=== PATIENT | female | born 1995 | race Hispanic/Latino ===

== ENCOUNTER 2016-11-21 12:55 | Emergency (ER) | payer SELFPAY ==
[2016-11-21] MEDS ORDERED: DUONEB 0.5 MG-3 MG/3 ML SOLN IH ONE ×2 (14:04→14:07)
[2016-11-21] MEDS ORDERED: DELTASONE PO ONE (14:05)
[2016-11-21] MEDS ORDERED: MOTRIN PO ONE (14:05)
[2016-11-21 14:20] LABS: Basophils % (Auto) 0.6 % (0.0-1.8); Eosinophils % (Auto) 1.7 % (0.0-4.3); Hematocrit 40.7 % (30.3-42.9); Hemoglobin 13.6 gm/dl (10.1-14.3); Mean Corpuscular HGB Conc 33 % (30-34); Mean Corpuscular Hemoglobin 30 pg (28-32); Mean Corpuscular Volume 89 fl (79-97); Platelet Count 301 K/mm3 (140-440); Red Cell Distribution Width 14.6 % (13.2-15.2); White Blood Count 12.4 K/mm3 (4.5-11.0)
--- NOTE | 2016-11-21 16:11 | XRay Report ---
ROUTINE CHEST, TWO VIEWS: PA and lateral views demonstrate the heart and mediastinal contour to be of normal size and shape. The lungs are clear and fully expanded and the soft tissues and bony structures are normal. IMPRESSION: Normal study.
[2016-11-21] MEDS ORDERED: TESSALON PERLES PO ONE (16:30)
[2016-11-21] MEDS ORDERED: MUCINEX ER PO ONE (16:30)
[2016-11-21] MEDS ORDERED: TYLENOL PO ONE (16:30)
--- NOTE | 2016-11-21 16:39 | Emergency Department Report ---
HPI - General Chief Complaint: Chest Pain Time Seen by Provider: 11/21/16 16:14 - HPI HPI: The patient is a 21-year-old female who presents for evaluation of cough and dyspnea. The patient has a history of COPD. The patient reports a moderate in severity now productive cough since last night at 10 PM, and progressive shortness of breath since midnight, constant since onset, exacerbated with exertion, severe since this a.m., greater than 8 hours prior to my evaluation. She states that her symptoms are consistent with previous episodes of asthma exacerbations. The patient denies fever, chest pain, syncope, orthopnea, hemoptysis, unilateral leg swelling, oral contraceptive use, recent immobilization, history of DVT or PE, hx cancer. ED Past Medical Hx - Past Medical History Hx Asthma: Yes - Surgical History Hx Appendectomy: Yes - Social History Smoking Status: Current Every Day Smoker Substance Use Type: None - Medications Home Medications: Home Medications Medication Instructions Recorded Confirmed Last Taken Type ALBUTEROL Inhaler [ProAir HFA 2 puff IH QID PRN #1 inhalation 11/21/16 Unknown Rx Inhaler] Ibuprofen [Motrin] 800 mg PO Q8HR PRN #14 tablet 11/21/16 Unknown Rx Phenylephrine/Dm/Acetaminop/GG 20 ml PO Q4HR PRN #180 liquid 11/21/16 Unknown Rx [Mucinex Bsmg-Xyq-Yksioaztkc Lq] predniSONE [Deltasone] 20 mg PO QDAY #5 tab 11/21/16 Unknown Rx traMADol [Ultram 50 MG tab] 50 mg PO Q6HR PRN #12 tablet 11/21/16 Unknown Rx ED Review of Systems ROS: Stated complaint: COUGH/CP/VOMITING/LIGHT HEADED/CP Other details as noted in HPI Constitutional: denies: fever ENT: denies: throat or neck pain Respiratory: reports cough, shortness of breath Cardiovascular: denies: chest pain Endocrine: denies unexplained weight loss or gain Gastrointestinal: denies: abdominal pain, nausea Genitourinary: denies: dysuria Musculoskeletal: denies: leg swelling Skin: denies: rash Neurological: denies: headache Hematological/Lymphatic: denies: easy bleeding or easy bruising Psych: denies sadness or hopelessness Physical Exam - Physical Exam Vital Signs: Vital Signs 11/21/16 11/21/16 11/21/16 13:58 14:28 14:41 Temperature 99.0 F Pulse Rate 89 Pulse Rate [ 85 88 Bilateral Upper Lobe] Respiratory 22 Rate Respiratory 20 18 Rate [Bilateral Upper Lobe] Blood Pressure 111/68 Blood Pressure [Left] O2 Sat by Pulse 93 Oximetry 11/21/16 11/21/16 15:48 15:50 Temperature 99.0 F Pulse Rate 112 H Pulse Rate [ Bilateral Upper Lobe] Respiratory 16 16 Rate Respiratory Rate [Bilateral Upper Lobe] Blood Pressure Blood Pressure 106/67 [Left] O2 Sat by Pulse 93 93 Oximetry Physical Exam: General: well-nourished, well-developed, no acute distress Head: Normocephalic, atraumatic Eyes: normal sclera ENT: bilateral nasal congestion present, mucous membranes are pale and dry Neck: trachea midline, neck supple, No neck stiffness, no cervical adenopathy Respiratory: Diminished breath sounds and wheezing present throughout lung benson bilaterally, no costal retractions, no respiratory distress Cardio: S1 and S2 present, no murmurs, rubs, gallops, capillary refill is delayed Abdomen: Normoactive bowel sounds, soft abdomen, no rigidity, no guarding or rebound tenderness Musc: No pitting edema Skin: No rash Neuro: no facial drooping, normal speech Psych: Normal affect ED Course Vital Signs 11/21/16 11/21/16 11/21/16 13:58 14:28 14:41 Temperature 99.0 F Pulse Rate 89 Pulse Rate [ 85 88 Bilateral Upper Lobe] Respiratory 22 Rate Respiratory 20 18 Rate [Bilateral Upper Lobe] Blood Pressure 111/68 Blood Pressure [Left] O2 Sat by Pulse 93 Oximetry 11/21/16 11/21/16 15:48 15:50 Temperature 99.0 F Pulse Rate 112 H Pulse Rate [ Bilateral Upper Lobe] Respiratory 16 16 Rate Respiratory Rate [Bilateral Upper Lobe] Blood Pressure Blood Pressure 106/67 [Left] O2 Sat by Pulse 93 93 Oximetry ED Medical Decision Making - Lab Data Result diagrams: 11/21/16 14:13 - Medical Decision Making The patient was seen and examined by myself. The patient is placed on a air sampling and monitoring and continuous pulse ox. On initial evaluation, the patient was found to be in no distress. Evaluation orders were placed. The patient is given a duoneb breathing treatment and prednisone for txt of COPD. the patient is given Tessalon Perles for her cough and Tylenol for pain. Lab results are grossly not concerning, including negative influenza screen and negative Preg test. Chest x-ray negative for focal consolidation, pleural effusions, pulmonary congestion, pneumothorax, or other acute cardio pulmonary disease process. The patient was reevaluated and reported that their symptoms were markedly improved. The patient is stable for discharge with outpatient follow-up. The patient is given follow-up and return instructions. The patient expressed understanding and agreed with the plan. The patient is given a prescription for prednisone. The patient is discharged in stable condition. Critical care attestation.: If time is entered above; I have spent that time in minutes in the direct care of this critically ill patient, excluding procedure time. ED Disposition Clinical Impression: Upper respiratory infection, acute, Asthma without acute exacerbation Disposition: DISCHARGED TO HOME OR SELFCARE Is pt being admited?: No Does the pt Need Aspirin: No Condition: Stable Instructions: Asthma (ED), Reactive Airways Disease (ED), Acute Bronchitis (ED) Referrals: PRIMARY CARE, [Primary Care Provider] - 3-5 Days Time of Disposition: 16:33
[2016-11-21 17:27] VITALS: BP 110/62
== END 2016-11-21 17:27 | disposition home or self-care (01) ==
LOC: ED 12:55
DX: J45.909 Unspecified asthma, uncomplicated (principal); J06.9 Acute upper respiratory infection, unspecified; F17.200 Nicotine dependence, unspecified, uncomplicated
CPT/HCPCS: 36415; 71020; 84702; 85025; 87400; 93005; 93010; 94640; 99284; J7512

== ENCOUNTER 2017-03-25 12:09 | Emergency (ER) | payer SELFPAY ==
[2017-03-25] MEDS ORDERED: DUONEB 0.5 MG-3 MG/3 ML SOLN IH ONE ×2 (12:16→13:55)
--- NOTE | 2017-03-25 12:17 | Emergency Department Report ---
Chief Complaint: Adult Asthma Stated Complaint: LIGHT HEADED/DIZZINESS/COUGH Time Seen by Provider: 03/25/17 12:15 - HPI History of Present Illness: pt c/o asthma exacerbation - ROS Review of Systems: + cough + chest feels tight - Exam Physical Exam: insp and exp wheezes todd MSE screening note: Focused history and physical exam performed. Due to findings the following was ordered: meds ED Disposition for MSE Condition: Stable
[2017-03-25 12:20] VITALS: BP 110/67
[2017-03-25] MEDS ORDERED: NACL BACTERIOSTATIC INFILTRATI ONE (12:34)
--- NOTE | 2017-03-25 15:01 | XRay Report ---
ROUTINE CHEST, TWO VIEWS: HISTORY: Shortness of breath. The trachea, heart, mediastinal contour, lung benson and bony thorax are unremarkable. IMPRESSION: Unremarkable chest x-ray.
--- NOTE | 2017-03-25 18:34 | Emergency Department Report ---
Entered by MADHAVI SOLOMON, acting as scribe for JR LORA NP. ED Asthma HPI - General Chief Complaint: Adult Asthma Stated Complaint: LIGHT HEADED/DIZZINESS/COUGH Time Seen by Provider: 03/25/17 12:15 Source: patient Mode of arrival: Ambulatory Limitations: No Limitations - History of Present Illness Initial Comments: This is a 21 y/o female nontoxic, well nourished in appearance, no acute signs of distress presents with difficulty breathing secondary to asthma exacerbation that started 3 days ago and is worsened by heat. Patient stated has been dx with asthma for a long time but does not f/u with a PCP. Sx include difficilty breathing, light headedness and dizziness but pt denies sore throat, fever, chills, RANGEL, chest pain, abd pain, numbness, tingling, n/v, or neck stiffness. Medication includes inhaler, Flovent 110mg with mild relief. Patient stated heat triggers her symptoms and causes her to have asthma exacerbations. Patient denies any drug allergies. Denies PMH aside from Asthma. MD Complaint: other (asthma exacerbation) -: days(s) (3) Asthma History: childhood onset Severity: mild Context: none known Associated Symptoms: dry cough. denies: productive cough, fever, chest pain, hemoptysis, leg edema, syncope Treatments Prior to Arrival: inhaled steroid - Related Data Current Asthma Therapy: inhaled steroid Previous Rx's Medication Instructions Recorded Last Taken Type ALBUTEROL Inhaler [ProAir HFA 2 puff IH QID PRN #1 inhalation 11/21/16 Unknown Rx Inhaler] Ibuprofen [Motrin] 800 mg PO Q8HR PRN #14 tablet 11/21/16 Unknown Rx Phenylephrine/Dm/Acetaminop/GG 20 ml PO Q4HR PRN #180 liquid 11/21/16 Unknown Rx [Mucinex Rfcb-Wvn-Tlheendgkc Lq] predniSONE [Deltasone] 20 mg PO QDAY #5 tab 11/21/16 Unknown Rx traMADol [Ultram 50 MG tab] 50 mg PO Q6HR PRN #12 tablet 11/21/16 Unknown Rx ALBUTEROL Inhaler [ProAir HFA 2 puff IH QID PRN #1 inhalation 03/25/17 Unknown Rx Inhaler] predniSONE [Deltasone] 20 mg PO BID #10 tab 03/25/17 Unknown Rx Allergies Allergy/AdvReac Type Severity Reaction Status Date / Time No Known Allergies Allergy Unverified 06/23/13 09:07 ED Review of Systems Comment: All other systems reviewed and negative Constitutional: denies: chills, fever Eyes: denies: eye pain, eye discharge, vision change ENT: denies: ear pain, throat pain Respiratory: cough, wheezing. denies: SOB with exertion, SOB at rest Cardiovascular: denies: chest pain, dyspnea on exertion, orthopnea, syncope, paroxysmal nocturnal dyspnea Endocrine: no symptoms reported Gastrointestinal: denies: abdominal pain, nausea, vomiting, diarrhea Genitourinary: denies: urgency, dysuria, discharge Musculoskeletal: denies: back pain, joint swelling, arthralgia Skin: denies: rash, lesions Neurological: other (light headedness, dizziness). denies: headache, weakness, numbness, paresthesias Psychiatric: denies: anxiety, depression Hematological/Lymphatic: denies: easy bleeding, easy bruising ED Past Medical Hx - Past Medical History Previous Medical History?: Yes Hx Asthma: Yes - Surgical History Past Surgical History?: Yes Hx Appendectomy: Yes - Social History Smoking Status: Current Every Day Smoker Substance Use Type: None - Medications Home Medications: Home Medications Medication Instructions Recorded Confirmed Last Taken Type ALBUTEROL Inhaler [ProAir HFA 2 puff IH QID PRN #1 inhalation 11/21/16 Unknown Rx Inhaler] Ibuprofen [Motrin] 800 mg PO Q8HR PRN #14 tablet 11/21/16 Unknown Rx Phenylephrine/Dm/Acetaminop/GG 20 ml PO Q4HR PRN #180 liquid 11/21/16 Unknown Rx [Mucinex Eybp-Nns-Mxniwxjdzm Lq] predniSONE [Deltasone] 20 mg PO QDAY #5 tab 11/21/16 Unknown Rx traMADol [Ultram 50 MG tab] 50 mg PO Q6HR PRN #12 tablet 11/21/16 Unknown Rx ALBUTEROL Inhaler [ProAir HFA 2 puff IH QID PRN #1 inhalation 03/25/17 Unknown Rx Inhaler] predniSONE [Deltasone] 20 mg PO BID #10 tab 03/25/17 Unknown Rx ED Physical Exam - General Limitations: No Limitations General appearance: alert, in no apparent distress - Head Head exam: Present: atraumatic, normocephalic - Eye Eye exam: Present: normal appearance, PERRL, EOMI Pupils: Present: normal accommodation - ENT ENT exam: Present: normal exam, normal orophraynx, mucous membranes moist ( Uvula midline), TM's normal bilaterally, normal external ear exam, other (uvula midline). Absent: mucous membranes dry - Neck Neck exam: Present: normal inspection, full ROM. Absent: tenderness, meningismus, lymphadenopathy, thyromegaly - Respiratory Respiratory exam: Present: normal lung sounds bilaterally, wheezes (inspiratory and expiratory bilaterally upper and lower lobes). Absent: respiratory distress , rales, rhonchi, stridor, chest wall tenderness, accessory muscle use, decreased breath sounds, prolonged expiratory - Cardiovascular Cardiovascular Exam: Present: regular rate, normal rhythm, normal heart sounds. Absent: bradycardia, tachycardia, irregular rhythm, systolic murmur, diastolic murmur, rubs, gallop - GI/Abdominal GI/Abdominal exam: Present: soft, normal bowel sounds. Absent: distended, tenderness, guarding, rebound, rigid, mass, bruit - Extremities Exam Extremities exam: Present: normal inspection, full ROM, normal capillary refill. Absent: tenderness, pedal edema, joint swelling, calf tenderness - Back Exam Back exam: Present: normal inspection, full ROM. Absent: tenderness, CVA tenderness (R), CVA tenderness (L), muscle spasm, paraspinal tenderness, vertebral tenderness, rash noted - Neurological Exam Neurological exam: Present: alert, oriented X3, CN II-XII intact, normal gait, reflexes normal. Absent: altered, abnormal gait, motor sensory deficit - Psychiatric Psychiatric exam: Present: normal affect, normal mood - Skin Skin exam: Present: warm, dry, intact, normal color. Absent: rash ED Course Vital Signs 03/25/17 03/25/17 03/25/17 12:17 12:31 12:51 Temperature 97.7 F Pulse Rate 65 Pulse Rate [ 77 62 Posterior Bilateral Throughout] Respiratory 18 Rate Respiratory 20 20 Rate [Posterior Bilateral Throughout] Blood Pressure 110/67 O2 Sat by Pulse 95 Oximetry 03/25/17 14:09 Temperature Pulse Rate Pulse Rate [ 57 L Posterior Bilateral Throughout] Respiratory Rate Respiratory 20 Rate [Posterior Bilateral Throughout] Blood Pressure O2 Sat by Pulse Oximetry - Reevaluation(s) Reevaluation #1: 03/25/17 14:26 Patient feels much better post-DuoNeb 2. She currently stated she does not feel short of breath. Reevaluation #2: 03/25/17 14:33 Wheezing has decreased significantly. ED Medical Decision Making - Medical Decision Making Ed course: This is a 21-year-old female that presents with asthma exacerbation. 1- patient received DuoNeb 2 and Solu-Medrol 40 mg IM in the ED. Patient stated she feels much better with no shortness of breath. Decreased wheezing. 2- patient received prednisone 40 mg and albuterol at the time of discharge. 3- chest x-ray has been obtained in ED. Patient was notified of x-ray findings with her for that was noted by the patient. 4- at time time of discharge, the patient does not seem toxic or ill in appearance. No acute signs of distress noted. Patient agrees to discharge treatment plan of care. No further questions noted by the patient. ED Disposition Clinical Impression: Asthma exacerbation Disposition: DC- TO HOME OR SELFCARE Is pt being admited?: No Does the pt Need Aspirin: No Condition: Stable Instructions: Asthma (ED), Albuterol (By breathing), Prednisone (By mouth) Additional Instructions: Follow-up with a primary care doctor in 24 hours or if symptoms worsen such as shortness of breath, difficulty breathing, chest pain, headache, stiff neck, fever or chills before back to emergency room as soon as possible. Take albuterol and prednisone as prescribed. Prescriptions: ALBUTEROL Inhaler [ProAir HFA Inhaler] 2 puff IH QID PRN #1 inhalation PRN Reason: Shortness Of Breath predniSONE [Deltasone] 20 mg PO BID #10 tab Referrals: PRIMARY CAREMD [Primary Care Provider] - 3-5 Days KIMI TURNER JR, MD [Staff Physician] - 3-5 Days [facility] [Outside] - 3-5 Days [facility] [Outside] - 3-5 Days Forms: Work/School Release Form(ED) This documentation as recorded by the NEHA rowe RYAN,accurately reflects the service I personally performed and the decisions made by ,JR LORA, LINING [employer].
== END 2017-03-25 15:38 | disposition home or self-care (01) ==
LOC: ED 12:09
DX: J45.901 Unspecified asthma with (acute) exacerbation (principal); F17.200 Nicotine dependence, unspecified, uncomplicated
CPT/HCPCS: 71020; 94640; 96372; 99283; J2930

== ENCOUNTER 2017-09-13 19:46 | Emergency (ER) | payer SELFPAY ==
[2017-09-13 19:54] VITALS: BP 127/73
[2017-09-13 20:49] LABS: Anion Gap 20 mmol/L; BUN/Creatinine Ratio 18; Blood Urea Nitrogen 11 mg/dL (7-17); Calcium 9.7 mg/dL (8.4-10.2); Carbon Dioxide 25 mmol/L (22-30); Chloride 99.7 mmol/L (98-107); Glucose 106 mg/dL (65-100); Potassium 3.5 mmol/L (3.6-5.0); Sodium 141 mmol/L (137-145)
[2017-09-13 20:56] LABS: Hematocrit 41.1 % (30.3-42.9); Hemoglobin 13.8 gm/dl (10.1-14.3); Mean Corpuscular HGB Conc 34 % (30-34); Mean Corpuscular Hemoglobin 30 pg (28-32); Mean Corpuscular Volume 89 fl (79-97); Platelet Count 311 K/mm3 (140-440); Red Blood Count 4.61 M/mm3 (3.65-5.03); Red Cell Distribution Width 14.5 % (13.2-15.2); White Blood Count 12.9 K/mm3 (4.5-11.0)
[2017-09-13 20:59] LABS: Bilirubin,Urine NEG (Negative); Blood,Urine NEG (Negative); Ketones,Urine NEG (Negative); Leukocyte Esterase,Urine NEG (Negative); Nitrite,Urine NEG (Negative); Protein,Urine <15 mg/dL mg/dL (Negative); Urobilinogen,Urine < 2.0 mg/dL (<2.0); WBC,Urine < 1.0 /HPF (0.0-6.0)
[2017-09-13] MEDS ORDERED: DUONEB *Not for PRN Use IH ONE ×2 (21:47→21:48)
--- NOTE | 2017-09-13 22:06 | XRay Report ---
FINAL REPORT EXAM: XR CHEST ROUTINE 2V HISTORY: asthma TECHNIQUE: Two view chest PA and lateral PRIORS: None. FINDINGS: Cardiac and mediastinal contours are unremarkable. No focal pulmonary infiltrate is identified. No pleural fluid collection seen. Pulmonary vasculature is unremarkable. IMPRESSION: Negative two-view chest
--- NOTE | 2017-09-13 22:11 | Emergency Department Report ---
HPI - General Chief Complaint: Adult Asthma Time Seen by Provider: 09/13/17 21:39 - HPI HPI: Patient is a 22-year-old female with a history of asthma who presents to the ED via EMS complaining of asthma exacerbation she was at work earlier today. 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 Patient states that she doesn't have any insurance issues unable to get her medications. Has no inhalers at home. She denies any recent illnesses. ED Past Medical Hx - Past Medical History Hx Asthma: Yes - Surgical History Hx Appendectomy: Yes - Social History Smoking Status: Former Smoker Substance Use Type: Alcohol - Medications Home Medications: Home Medications Medication Instructions Recorded Confirmed Last Taken Type ALBUTEROL Inhaler [ProAir HFA 2 puff IH QID PRN #1 inhalation 11/21/16 Unknown Rx Inhaler] Ibuprofen [Motrin] 800 mg PO Q8HR PRN #14 tablet 11/21/16 Unknown Rx Phenylephrine/Dm/Acetaminop/GG 20 ml PO Q4HR PRN #180 liquid 11/21/16 Unknown Rx [Mucinex Tcpf-Iqq-Hcjtiyuayd Lq] traMADol [Ultram 50 MG tab] 50 mg PO Q6HR PRN #12 tablet 11/21/16 Unknown Rx predniSONE [Deltasone] 20 mg PO BID #10 tab 03/25/17 Unknown Rx ALBUTEROL Inhaler [ProAir HFA 2 puff IH QID PRN #1 inhalation 09/13/17 Unknown Rx Inhaler] guaiFENesin [Robitussin] 200 mg PO Q6HR #20 tablet 09/13/17 Unknown Rx predniSONE [Deltasone] 20 mg PO QDAY #5 tab 09/13/17 Unknown Rx ED Review of Systems ROS: Stated complaint: SUSIE Other details as noted in HPI Constitutional: denies: chills, fever Eyes: denies: eye pain, eye discharge, vision change ENT: denies: ear pain, throat pain Respiratory: denies: cough, shortness of breath, wheezing Cardiovascular: denies: chest pain, palpitations Endocrine: no symptoms reported Gastrointestinal: denies: abdominal pain, nausea, diarrhea Genitourinary: denies: urgency, dysuria, discharge Musculoskeletal: denies: back pain, joint swelling, arthralgia Skin: denies: rash, lesions Neurological: denies: headache, weakness, paresthesias Psychiatric: denies: anxiety, depression Hematological/Lymphatic: denies: easy bleeding, easy bruising Physical Exam - Physical Exam Vital Signs: Vital Signs 09/13/17 19:50 Temperature 98.8 F Pulse Rate 84 Respiratory 18 Rate Blood Pressure 127/73 O2 Sat by Pulse 98 Oximetry Physical Exam: GENERAL: Alert and oriented x3, no apparent distress, Normal Gait, atraumatic. Sitting in bed with no respiratory distress HEAD: Head is normocephalic and a-traumatic. NOSE: Nose symetrical, Nontender,Nares appeared normal. MOUTH:Mouth is well hydrated and without lesions. Tonsils nonerythematous or swollen, Uvula midline, Tongue not elevated. Mucous membranes are moist. Posterior pharynx clear, no exudate or lesions. Patent airways. NECK: Supple. Non edematous, . No lymphadenopathy or thyromegaly. No C-spine tenderness LUNGS: Symetrical with respiration, No wheezing, no rales or crackles, CTAB. No use of accessory muscles HEART: S1, S2 present, regular rate and rhythm without murmur, no rubs, no gallops. Non tender to palpation BACK: Full range of motion, no spinal tenderness, nontender to palpation. SKIN: Warm and dry, No lesions, No ulceration or induration present. ED Course Vital Signs 09/13/17 19:50 Temperature 98.8 F Pulse Rate 84 Respiratory 18 Rate Blood Pressure 127/73 O2 Sat by Pulse 98 Oximetry ED Medical Decision Making - Lab Data Result diagrams: 09/13/17 20:16 09/13/17 20:16 - Radiology Data Radiology results: report reviewed Negative chest x-ray. No cardiopulmonary acute findings. - Medical Decision Making 22-year-old presents with asthma exacerbation ED course: Patient received IV Decadron and albuterol in route ED Patient received DuoNeb breathing treatments while in the ED. Long assessment after breathing treatment normalized, no wheezing. Patient is breathing on her own and satting 98% oxygen and Chest x-ray showed no abnormal findings. CBC shows mild leukocytosis otherwise normal labs. I discussed all the findings with the patient. I sent patient home on prednisone and albuterol inhaler with some good R aches coupons so she can get her medications. I discussed the patient to follow-up with Primary care physician. Critical care attestation.: If time is entered above; I have spent that time in minutes in the direct care of this critically ill patient, excluding procedure time. ED Disposition Clinical Impression: Asthma exacerbation Qualifiers: Asthma severity: mild Asthma persistence: intermittent Qualified Code(s): J45.21 - Mild intermittent asthma with (acute) exacerbation Disposition: TO HOME OR SELFCARE Is pt being admited?: No Does the pt Need Aspirin: No Condition: Stable Instructions: Asthma (ED) Additional Instructions: You were given some prescription medication she upon cart used to get your medications. Take medication as prescribed. Follow-up with their primary care physician. If you have any worsening symptoms please return to ED Prescriptions: ALBUTEROL Inhaler [ProAir HFA Inhaler] 2 puff IH QID PRN #1 inhalation PRN Reason: Shortness Of Breath guaiFENesin [Robitussin] 200 mg PO Q6HR #20 tablet predniSONE [Deltasone] 20 mg PO QDAY #5 tab Referrals: PRIMARY CARE, [Primary Care Provider] - 3-5 Days [facility] [Outside] - 3-5 Days [facility] [Outside] - 3-5 Days [facility] [Outside] - 3-5 Days [facility] [Outside] - 3-5 Days Forms: Work/School Release Form(ED) Time of Disposition: 22:18
== END 2017-09-13 22:45 | disposition home or self-care (01) ==
LOC: ED 19:46
DX: J45.21 Mild intermittent asthma with (acute) exacerbation (principal); Z87.891 Personal history of nicotine dependence
CPT/HCPCS: 36415; 71020; 80048; 81001; 81025; 85027; 94640

== ENCOUNTER 2017-12-23 11:52 | Inpatient (IN) | payer OTHER ==
[2017-12-23] MEDS ORDERED: MAGNESIUM SULFATE 2GM/50ML 2 GM/50 ML BAG IV ONE (12:46)
[2017-12-23] MEDS ORDERED: PROVENTIL IH ONE ×2 (12:46→13:59)
[2017-12-23] MEDS ORDERED: TESSALON PERLES PO ONE (12:47)
--- NOTE | 2017-12-23 12:48 | Emergency Department Report ---
Chief Complaint: Adult Asthma Stated Complaint: CHEST PAIN/SUSIE Time Seen by Provider: 12/23/17 12:35 - HPI History of Present Illness: The patient is a 22-year-old female presents for evaluation of dyspnea and cough for the past 3 weeks. The patient has a history of asthma and daily tobacco use. The patient denies fever, chest pain, syncope, hemoptysis, unilateral leg swelling, oral contraceptive use, recent immobilization, history of DVT or PE, recent cancer. - Exam Vital Signs: Vital Signs 12/23/17 11:59 Temperature 98.5 F Pulse Rate 82 Respiratory 20 Rate Blood Pressure 115/70 O2 Sat by Pulse 93 Oximetry MSE screening note: Focused history and physical exam performed. Due to findings the following was ordered: ED Disposition for MSE Condition: Stable
--- NOTE | 2017-12-23 13:03 | Emergency Department Report ---
HPI - General Chief Complaint: Adult Asthma Time Seen by Provider: 12/23/17 12:35 - HPI HPI: The patient is a 22-year-old female presents for evaluation of dyspnea and cough for the past 3 weeks. The patient has a history of asthma and daily tobacco use. The patient denies fever, chest pain, syncope, hemoptysis, unilateral leg swelling, oral contraceptive use, recent immobilization, history of DVT or PE, recent cancer. ED Past Medical Hx - Past Medical History Previous Medical History?: Yes Hx Asthma: Yes - Surgical History Past Surgical History?: Yes Hx Appendectomy: Yes - Family History Family history: hypertension - Social History Smoking Status: Never Smoker Substance Use Type: None - Medications Home Medications: Home Medications Medication Instructions Recorded Confirmed Last Taken Type No Known Home Medications [No 12/23/17 12/23/17 Unknown History Reported Home Medications] ED Review of Systems ROS: Stated complaint: CHEST PAIN/SUSIE Other details as noted in HPI Comment: All other systems reviewed and negative Constitutional: no symptoms reported ENT: congestion. denies: throat pain Respiratory: cough, shortness of breath, SOB with exertion, wheezing. denies: orthopnea, SOB at rest, stridor Cardiovascular: chest pain. denies: palpitations, dyspnea on exertion, edema, syncope, paroxysmal nocturnal dyspnea Gastrointestinal: denies: abdominal pain, nausea, vomiting Musculoskeletal: denies: back pain, joint swelling, arthralgia, myalgia Skin: denies: rash Neurological: denies: headache, weakness, numbness, paresthesias, confusion, abnormal gait, vertigo Physical Exam - Physical Exam Vital Signs: Vital Signs 12/23/17 11:59 Temperature 98.5 F Pulse Rate 82 Respiratory 20 Rate Blood Pressure 115/70 O2 Sat by Pulse 93 Oximetry General: This is a 22-year-old female in mild distress from asthma. Physical Exam: Head: Normocephalic atraumatic Ears:BIateral TM congested without erythema and loss of bony landmarks. [place] EAC with normal exam. No mastoid bone tenderness. Mouth: Moist, no pharyngeal erythema or exudate . No tonsillar erythema or exudate. UVULA midline and oral airways patent. No peritonsillar abscess Neck: Nontender to palpate, supple, normal range of motion. No adenopathy. No c- spine tenderness. Nose: Bilateral nasal mucosa congested with clear drainage. Maxillary and frontal sinuses non-tender to palpate. Eyes: Bilateral Sclerae and conjunctiva without injection. Bilateral pupils equal and reactive to light. Bilateral lids are normal. Normal accommodation.BEOMI Lungs: Wheezes throughout lung benson. Minimal use use of accessory muscles Normal work of breathing and no chest wall tenderness. Dry cough Extremity: No Clubbing, cyanosis or edema. +2 pulses in all extremities and no neurovascular compromise Abdomen: Soft, nontender to palpate in all quadrants. Normal bowel sounds in all quadrants and no CVA tenderness CV: S1, S2. Regular rate and rhythm negative murmur. Capillary refill is less than 3 seconds Skin: Clean dry and intact, no rashes or lesions Psych: Normal mood and behavior ED Course Vital Signs 12/23/17 11:59 Temperature 98.5 F Pulse Rate 82 Respiratory 20 Rate Blood Pressure 115/70 O2 Sat by Pulse 93 Oximetry - Reevaluation(s) Reevaluation #1: 12/23/17 14:16 Patient received 7.5 mg albuterol, magnesium sulfate IV, Solu-Medrol IV and she says she feels better but still with wheezing throughout lung benson. She is started on albuterol 5 mg nebulizer and Atrovent 0.5 mg. I will reevaluate after nebulizer completion. 12/23/17 15:25 Reevaluation #2: 12/23/17 15:23 Patient received additional dose of albuterol 5 mg and Atrovent 0.5 mg and she states that she is feeling better. Up in her evaluation, patient with wheezing throughout lung benson. Her oxygenation after nebulizer treatments at 90% with heart rate of 106 and still with increased work of breathing. 12/23/17 15:24 Reevaluation #3: 12/23/17 15:31 Awaiting the hospitalist call back ED Medical Decision Making - Lab Data Result diagrams: 12/23/17 15:45 Lab Results 12/23/17 12/23/17 Range/Units 13:23 15:45 WBC 12.3 H (4.5-11.0) K/mm3 RBC 4.87 (3.65-5.03) M/mm3 Hgb 14.3 (10.1-14.3) gm/dl Hct 42.3 (30.3-42.9) % MCV 87 (79-97) fl MCH 29 (28-32) pg MCHC 34 (30-34) % RDW 14.1 (13.2-15.2) % Plt Count 312 (140-440) K/mm3 Lymph % (Auto) 10.6 L (13.4-35.0) % [place] % (Auto) 1.2 (0.0-7.3) % Eos % (Auto) 0.5 (0.0-4.3) % Baso % (Auto) 0.3 (0.0-1.8) % Lymph # 1.3 (1.2-5.4) K/mm3 [place] # 0.1 (0.0-0.8) K/mm3 Eos # 0.1 (0.0-0.4) K/mm3 Baso # 0.0 (0.0-0.1) K/mm3 Seg Neutrophils % 87.4 H (40.0-70.0) % Seg Neutrophils # 10.8 H (1.8-7.7) K/mm3 Urine HCG, Qual Negative (Negative) - EKG Data -: EKG Interpreted by Me (attending physician) EKG shows normal: sinus rhythm Rate: normal - EKG Data Interpretation: no acute changes, normal EKG - Radiology Data Radiology results: report reviewed Chest x-ray reveals no acute cardiopulmonary findings - Medical Decision Making ED course: Patient with status asthmaticus and will be admitted to the hospital for management of asthma. I spoke with Dr. Patino who is the hospitalist that we will take over patient care. Please refer to radiology section for chest x- ray report and laboratory section for lab report. Patient received a total of 12.5 mg of albuterol, 0.5 mg of Atrovent, 125 mg Solu-Medrol IV and 2 g of magnesium IV with minimal relief. Ptaware of admission plans that she is in agreement. Her pulse ox remains at 90% on room air and she was placed on 2 L nasal cannula. Patient awaiting in the room. Critical care attestation.: If time is entered above; I have spent that time in minutes in the direct care of this critically ill patient, excluding procedure time. ED Disposition Clinical Impression: Chest pain in adult, Cough, Shortness of breath, Low oxygen saturation Status asthmaticus Qualifiers: Asthma severity: severe Asthma persistence: persistent Qualified Code(s): J45.52 - Severe persistent asthma with status asthmaticus Disposition: DC-09 OP ADMIT IP TO THIS HOSP Is pt being admited?: Yes Does the pt Need Aspirin: No Condition: Stable Instructions: Chest Pain (ED)
[2017-12-23 13:38] LABS: HCG Qualitative,Urine Negative (Negative)
[2017-12-23] MEDS ORDERED: ATROVENT IH ONE (13:59)
--- NOTE | 2017-12-23 14:32 | XRay Report ---
ROUTINE CHEST, TWO VIEWS: HISTORY: Cough, wheezing. The trachea, heart, mediastinal contour, lung benson and bony thorax are unremarkable. IMPRESSION: Unremarkable chest x-ray. No significant change since 09/13/17.
[2017-12-23 16:00] LABS: Basophils % (Auto) 0.3 % (0.0-1.8); Eosinophils # (Auto) 0.1 K/mm3 (0.0-0.4); Eosinophils % (Auto) 0.5 % (0.0-4.3); Hematocrit 42.3 % (30.3-42.9); Hemoglobin 14.3 gm/dl (10.1-14.3); Lymphocytes # (Auto) 1.3 K/mm3 (1.2-5.4); Lymphocytes % (Auto) 10.6 % (13.4-35.0); Mean Corpuscular HGB Conc 34 % (30-34); Mean Corpuscular Hemoglobin 29 pg (28-32); Mean Corpuscular Volume 87 fl (79-97); Monocytes # (Auto) 0.1 K/mm3 (0.0-0.8); Monocytes % (Auto) 1.2 % (0.0-7.3); Platelet Count 312 K/mm3 (140-440); Red Blood Count 4.87 M/mm3 (3.65-5.03); Red Cell Distribution Width 14.1 % (13.2-15.2)
[2017-12-23 16:17] LABS: Alanine Aminotransferase 15 units/L (7-56); Albumin 4.4 g/dL (3.9-5); BUN/Creatinine Ratio 12; Blood Urea Nitrogen 7 mg/dL (7-17); Calcium 9.1 mg/dL (8.4-10.2); Hemolysis Index 10
[2017-12-23] MEDS: PROVENTIL IH SCH (19:20)
[2017-12-24] MEDS: PROVENTIL IH SCH ×4 (02:11→21:45)
--- NOTE | 2017-12-24 05:54 | Event Note ---
Date: 12/23/17 See dictated H/p in reports
[2017-12-24] MEDS ORDERED: DUONEB *Not for PRN Use IH (05:56)
[2017-12-24] MEDS ORDERED: PROVENTIL IH PRN (06:49)
--- NOTE | 2017-12-24 08:27 | History and Physical Report ---
CHIEF COMPLAINT: Increasing wheezing and shortness of breath for 3 weeks. HISTORY OF PRESENT ILLNESS: A 22-year-old female with history of asthma, comes in for increasing shortness of breath and wheezing. Not responding to outpatient treatment. No recent travel. No fever or chills. No exacerbating or relieving factors. PAST MEDICAL HISTORY: Significant for asthma. PAST SURGICAL HISTORY: Appendectomy. FAMILY HISTORY: Hypertension. SOCIAL HISTORY: Does not smoke. No alcohol. No recreation drugs. REVIEW OF SYSTEMS: Significant for shortness of breath and increasing wheezing. No fever, no chills. Otherwise, 14-point review of systems negative. PHYSICAL EXAMINATION: GENERAL: Young female in respiratory distress. VITAL SIGNS: Temperature is 98.5, pulse is 82, respirations 20, blood pressure 150/70, sats are 93%. HEENT: Unremarkable. Pupils equal and reactive. NECK: Accessory muscles of respiration are prominent. CHEST: Inspiratory rhonchi present. CARDIOVASCULAR: No gallop, no murmur, no rub. Apical impulse in left fifth intercostal space and midclavicular line. ABDOMEN: Soft and benign. No hepatosplenomegaly. No guarding, no rigidity. Hernial orifices are normal. EXTREMITIES: Good pedal pulses. No pedal edema. CENTRAL NERVOUS SYSTEM: Alert and oriented x 4, nonfocal exam. SKIN: Normal. LABORATORY DATA: White count is 12,300, H and H is 14.3 and 42.3, platelet count is 312,000. EKG normal sinus rhythm, no acute ST-T wave changes. Chest x-ray: No acute cardiopulmonary findings. ASSESSMENT AND PLAN: 1. Acute asthma exacerbation. The patient started on IV Levaquin, albuterol q. 6 round the clock and DuoNeb q. 3 p.r.n. and also IV Solu-Medrol at low dose. 2. Deep venous thrombosis prophylaxis, heparin 5000 q. 12. JOB# [id number] VSM/NTS
[2017-12-24] MEDS ORDERED: K-DUR PO ONE (09:00)
[2017-12-24] MEDS: HEPARIN SUB-Q SCH ×2 (09:40→22:49)
[2017-12-24] MEDS ORDERED: LEVAQUIN 750MG/150ML 750 MG/150 ML BAG IV SCH (10:00)
--- NOTE | 2017-12-24 16:28 | Progress Note ---
Assessment and Plan Assessment and plan: Patient is a 22-year-old woman with history of asthma and tobacco dependency presents with shortness of breath and cough. 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 Follow-up on current diagnosis of shortness breath which is improved. Overnight uneventful. Patient denies any chest pain , nausea/vomiting or severe headaches. Imaging, nursing note, chart, labs and old chart reviewed. Discussed with patient. Hospitalist Physical - Physical exam Narrative exam: GEN: WDWN, NAD, AWAKE, ALERT, ORIENTATED 3 HEENT: NCAT, EOMI, PERRL, OP Clear NECK: supple, no adenopathy, no thyromegaly, no JVD CVS/HEART: RRR, NORMAL S1S2, pulses present bilaterally CHEST/LUNGS: Coarse rhonchi BILATERALLY Symmetrical chest expansion, good air entry bilaterally GI/Abdomen: soft, NTND, good bowel sounds, no guarding or rebound /Bladder: no suprapubic tenderness, no CVA or paraspinal tenderness EXT/Skin: no c/c/e, no obvious rash MSK: FROM x 4 Neuro: CN 2-12 grossly intact, no new focal deficits Psych: calm - Constitutional Vitals: Temp Pulse Resp BP Pulse Ox 98.3 F 88 20 104/62 95 12/24/17 12:00 12/24/17 12:12 12/24/17 12:12 12/24/17 12:00 12/24/17 12:00 Results - Labs CBC & Chem 7: 12/23/17 15:45 12/23/17 15:45 Labs: Laboratory Last Values WBC 12.3 K/mm3 (4.5-11.0) H 12/23/17 15:45 RBC 4.87 M/mm3 (3.65-5.03) 12/23/17 15:45 Hgb 14.3 gm/dl (10.1-14.3) 12/23/17 15:45 Hct 42.3 % (30.3-42.9) 12/23/17 15:45 MCV 87 fl (79-97) 12/23/17 15:45 MCH 29 pg (28-32) 12/23/17 15:45 MCHC 34 % (30-34) 12/23/17 15:45 RDW 14.1 % (13.2-15.2) 12/23/17 15:45 Plt Count 312 K/mm3 (140-440) 12/23/17 15:45 Lymph % (Auto) 10.6 % (13.4-35.0) L 12/23/17 15:45 [place] % (Auto) 1.2 % (0.0-7.3) 12/23/17 15:45 Eos % (Auto) 0.5 % (0.0-4.3) 12/23/17 15:45 Baso % (Auto) 0.3 % (0.0-1.8) 12/23/17 15:45 Lymph # 1.3 K/mm3 (1.2-5.4) 12/23/17 15:45 [place] # 0.1 K/mm3 (0.0-0.8) 12/23/17 15:45 Eos # 0.1 K/mm3 (0.0-0.4) 12/23/17 15:45 Baso # 0.0 K/mm3 (0.0-0.1) 12/23/17 15:45 Seg Neutrophils % 87.4 % (40.0-70.0) H 12/23/17 15:45 Seg Neutrophils # 10.8 K/mm3 (1.8-7.7) H 12/23/17 15:45 Sodium 137 mmol/L (137-145) 12/23/17 15:45 Potassium 3.5 mmol/L (3.6-5.0) L 12/23/17 15:45 Chloride 97.8 mmol/L (98-107) L 12/23/17 15:45 Carbon Dioxide 22 mmol/L (22-30) 12/23/17 15:45 Anion Gap 21 mmol/L 12/23/17 15:45 BUN 7 mg/dL (7-17) 12/23/17 15:45 Creatinine 0.6 mg/dL (0.7-1.2) L 12/23/17 15:45 Estimated GFR > 60 ml/min 12/23/17 15:45 BUN/Creatinine Ratio 12 % 12/23/17 15:45 Glucose 157 mg/dL (65-100) H 12/23/17 15:45 Calcium 9.1 mg/dL (8.4-10.2) 12/23/17 15:45 Total Bilirubin 0.20 mg/dL (0.1-1.2) 12/23/17 15:45 AST 20 units/L (5-40) 12/23/17 15:45 ALT 15 units/L (7-56) 12/23/17 15:45 Alkaline Phosphatase 76 units/L (35-129) 12/23/17 15:45 Total Protein 8.2 g/dL (6.3-8.2) 12/23/17 15:45 Albumin 4.4 g/dL (3.9-5) 12/23/17 15:45 Albumin/Globulin Ratio 1.2 % 12/23/17 15:45 Urine HCG, Qual Negative (Negative) 12/23/17 13:23
[2017-12-25] MEDS: PROVENTIL IH SCH ×2 (01:40→11:44)
[2017-12-25 06:22] LABS: Hemoglobin 13.9 gm/dl (10.1-14.3); Mean Corpuscular HGB Conc 34 % (30-34); Mean Corpuscular Hemoglobin 30 pg (28-32); Mean Corpuscular Volume 87 fl (79-97); Platelet Count 328 K/mm3 (140-440); Red Cell Distribution Width 14.4 % (13.2-15.2)
[2017-12-25 06:41] LABS: BUN/Creatinine Ratio 20; Blood Urea Nitrogen 8 mg/dL (7-17); Calcium 9.5 mg/dL (8.4-10.2); Hemolysis Index 7
[2017-12-25] MEDS: HEPARIN SUB-Q SCH (09:54)
[2017-12-25] MEDS ORDERED: LEVAQUIN PO SCH (10:00)
[2017-12-25 12:14] VITALS: BP 119/71
--- NOTE | 2017-12-25 12:47 | Discharge Summary ---
Providers - Providers Date of Admission: 12/23/17 16:22 Date of discharge: 12/25/17 Attending physician: SHABANA SEGURA Primary care physician: [employer] EMPLOYEE Hospitalization Condition: Stable Hospital course: Patient is a 22-year-old woman with history of asthma and tobacco dependency presents with shortness of breath and cough. 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 She doesn't need o2. Disposition: DC-01 TO HOME OR SELFCARE Time spent for discharge: 35 minutes Core Measure Documentation - Palliative Care Palliative Care/ Comfort Measures: Not Applicable - Core Measures Any of the following diagnoses?: none - VTE Discharge Requirements Deep Vein Thrombosis/Pulmonary Embolism Present on Admission: No Has pt received <5 days of overlap therapy or INR<2.0: No Anticoagulant overlap therapy prescribed at discharge: No Contraindication No Overlap Therapy order at DC: Not Indicated Exam - Physical Exam Narrative exam: GEN: WDWN, NAD, AWAKE, ALERT, ORIENTATED 3 HEENT: NCAT, EOMI, PERRL, OP Clear NECK: supple, no adenopathy, no thyromegaly, no JVD CVS/HEART: RRR, NORMAL S1S2, pulses present bilaterally CHEST/LUNGS: Coarse rhonchi BILATERALLY Symmetrical chest expansion, good air entry bilaterally GI/Abdomen: soft, NTND, good bowel sounds, no guarding or rebound /Bladder: no suprapubic tenderness, no CVA or paraspinal tenderness EXT/Skin: no c/c/e, no obvious rash MSK: FROM x 4 Neuro: CN 2-12 grossly intact, no new focal deficits Psych: calm - Constitutional Vitals: Temp Pulse Resp BP Pulse Ox 97.9 F 82 16 119/71 95 12/25/17 11:37 12/25/17 11:37 12/25/17 11:37 12/25/17 11:37 12/25/17 11:37 Plan Activity: other (no strenous activity until cleared by PCP) Diet: regular Additional Instructions: No working for 1 weeks, then light duty x 1 week. Avoid excessive temperature changes during light duty week. Follow up with: [facility] [Provider Group] - 7 Days Prescriptions: ALBUTEROL Inhaler [ProAir HFA Inhaler] 2 puff IH QID PRN #1 inhalation PRN Reason: Shortness Of Breath ALBUTEROL NEB's [Proventil 0.083% NEBS] 2.5 mg IH Q4H PRN #30 nebu PRN Reason: Shortness Of Breath Levofloxacin [Levaquin TAB] 750 mg PO DAILY #5 day methylPREDNISolone [Medrol Dose Rick] 1 dose PO DAILY #1 pack
== END 2017-12-25 13:14 | disposition home or self-care (01) | DRG 872 ==
LOC: ED 11:52 → 3A 16:22
PROVIDERS: ADMIT Internal Medicine; ATTEND Internal Medicine
DX: A41.9 Sepsis, unspecified organism (principal); J45.902 Unspecified asthma with status asthmaticus; R07.9 Chest pain, unspecified; F17.200 Nicotine dependence, unspecified, uncomplicated; Z82.49 Family history of ischemic heart disease and other diseases of the circulatory system; J20.9 Acute bronchitis, unspecified
CPT/HCPCS: 36415; 71046; 80048; 80053; 81025; 83735; 85025; 85027; 93005; 93010; 94640; 96365; 96375; J1644; J1956; J2920; J2930; J3475

== ENCOUNTER 2018-01-03 21:23 | Inpatient (IN) | payer OTHER ==
[2018-01-03] MEDS ORDERED: DUONEB *Not for PRN Use IH ONE (21:39)
[2018-01-03 22:16] LABS: Basophils # (Auto) 0.1 K/mm3 (0.0-0.1); Basophils % (Auto) 0.3 % (0.0-1.8); Eosinophils # (Auto) 0.3 K/mm3 (0.0-0.4); Eosinophils % (Auto) 1.8 % (0.0-4.3); Hematocrit 43.9 % (30.3-42.9); Hemoglobin 14.4 gm/dl (10.1-14.3); Lymphocytes % (Auto) 10.9 % (13.4-35.0); Mean Corpuscular HGB Conc 33 % (30-34); Mean Corpuscular Hemoglobin 29 pg (28-32); Mean Corpuscular Volume 88 fl (79-97); Monocytes # (Auto) 0.9 K/mm3 (0.0-0.8); Monocytes % (Auto) 4.7 % (0.0-7.3); Platelet Count 316 K/mm3 (140-440); Red Blood Count 4.97 M/mm3 (3.65-5.03); Red Cell Distribution Width 14.3 % (13.2-15.2)
[2018-01-03 22:29] LABS: BUN/Creatinine Ratio 16; Blood Urea Nitrogen 8 mg/dL (7-17); Calcium 9.8 mg/dL (8.4-10.2); Hemolysis Index 13
--- NOTE | 2018-01-03 23:41 | XRay Report ---
FINAL REPORT EXAM: XR CHEST ROUTINE 2V HISTORY: Cough and SUSIE TECHNIQUE: Two view chest PA and lateral PRIORS: Comparison is dated September 13, 2017 FINDINGS: Cardiac and mediastinal contours are unremarkable. No focal pulmonary infiltrate is identified. No pleural fluid collection seen. Pulmonary vasculature is unremarkable. No change from prior exam. IMPRESSION: Negative two-view chest
[2018-01-04] MEDS ORDERED: NACL 0.9% 1000 ML 1,000 ML IV ONE (01:36)
[2018-01-04] MEDS ORDERED: PROVENTIL IH ONE ×2 (01:36→05:34)
[2018-01-04] MEDS ORDERED: ATROVENT IH ONE (01:36)
[2018-01-04] MEDS ORDERED: NORCO 7.5/325 PO ONE (01:36)
--- NOTE | 2018-01-04 01:36 | Emergency Department Report ---
ED Asthma HPI - General Chief Complaint: Adult Asthma Stated Complaint: CHEST PAIN Time Seen by Provider: 01/04/18 01:31 Source: patient Mode of arrival: Ambulatory Limitations: No Limitations - History of Present Illness Initial Comments: Patient is a 22-year-old female who is presenting with wheezing cough congestion. Patient states she was in the hospital for approximately 3 days for asthma exacerbation last month. Patient had been doing well with her symptoms until 2 days ago where she started having cough chest tightness and increased wheeze. States her inhaler is not helping this morning. Patient denies any nausea vomiting diarrhea abdominal pains time. Asthma History: childhood onset Severity: severe Context: recent URI Associated Symptoms: dry cough, chest pain. denies: productive cough, fever, hemoptysis, leg edema, syncope - Related Data Previous Rx's Medication Instructions Recorded Last Taken Type ALBUTEROL Inhaler [ProAir HFA 2 puff IH QID PRN #1 inhalation 12/25/17 Unknown Rx Inhaler] ALBUTEROL NEB's [Proventil 0.083% 2.5 mg IH Q4H PRN #30 nebu 12/25/17 Unknown Rx NEBS] Levofloxacin [Levaquin TAB] 750 mg PO DAILY #5 day 12/25/17 Unknown Rx methylPREDNISolone [Medrol Dose 1 dose PO DAILY #1 pack 12/25/17 Unknown Rx Rick] Allergies Allergy/AdvReac Type Severity Reaction Status Date / Time No Known Allergies Allergy Unverified 06/23/13 09:07 ED Review of Systems ROS: Stated complaint: CHEST PAIN Other details as noted in HPI Comment: All other systems reviewed and negative ED Past Medical Hx - Past Medical History Hx Hypertension: No Hx Congestive Heart Failure: No Hx Diabetes: No Hx Deep Vein Thrombosis: No Hx Pulmonary Embolism: No Hx Renal Disease: No Hx Sickle Cell Disease: No Hx Kidney Stones: No Hx Asthma: Yes Hx COPD: No Hx Tuberculosis: No Hx HIV: No Additional medical history: Bronchitis - Surgical History Hx Coronary Stent: No Hx Pacemaker: No Hx Internal Defibrillator: No Hx Appendectomy: Yes - Social History Smoking Status: Never Smoker Substance Use Type: None - Medications Home Medications: Home Medications Medication Instructions Recorded Confirmed Last Taken Type ALBUTEROL Inhaler [ProAir HFA 2 puff IH QID PRN #1 inhalation 12/25/17 Unknown Rx Inhaler] ALBUTEROL NEB's [Proventil 0.083% 2.5 mg IH Q4H PRN #30 nebu 12/25/17 Unknown Rx NEBS] Levofloxacin [Levaquin TAB] 750 mg PO DAILY #5 day 12/25/17 Unknown Rx methylPREDNISolone [Medrol Dose 1 dose PO DAILY #1 pack 12/25/17 Unknown Rx Rick] ED Physical Exam - General Limitations: No Limitations General appearance: alert, in no apparent distress - Head Head exam: Present: atraumatic, normocephalic - Eye Eye exam: Present: normal appearance - ENT ENT exam: Present: mucous membranes moist - Neck Neck exam: Present: normal inspection - Respiratory Respiratory exam: Present: normal lung sounds bilaterally, wheezes. Absent: respiratory distress, rales, rhonchi - Cardiovascular Cardiovascular Exam: Present: normal rhythm, tachycardia. Absent: systolic murmur, diastolic murmur, rubs, gallop - GI/Abdominal GI/Abdominal exam: Present: soft, normal bowel sounds. Absent: distended, tenderness, guarding - Extremities Exam Extremities exam: Present: normal inspection - Back Exam Back exam: Present: normal inspection - Neurological Exam Neurological exam: Present: alert, oriented X3 - Psychiatric Psychiatric exam: Present: normal affect, normal mood - Skin Skin exam: Present: warm, dry, intact, normal color. Absent: rash ED Course Vital Signs 01/03/18 01/03/18 01/03/18 21:31 21:55 22:07 Temperature 99.3 F Pulse Rate 92 H Pulse Rate [ 112 H 118 H Bilateral Throughout] Respiratory 16 Rate Respiratory 24 20 Rate [Bilateral Throughout] Blood Pressure 106/65 O2 Sat by Pulse 92 Oximetry 01/04/18 01/04/18 02:13 03:40 Temperature Pulse Rate Pulse Rate [ 108 H 112 H Bilateral Throughout] Respiratory Rate Respiratory 20 20 Rate [Bilateral Throughout] Blood Pressure O2 Sat by Pulse Oximetry ED Medical Decision Making - Lab Data Result diagrams: 01/03/18 22:01 01/03/18 22:01 - Medical Decision Making After the patient's nebulizer treatment done here in the emergency department over the last hour the patient was still wheezing. Patient was put on a Ventimask for comfort and will be admitted to Dr. Magaña Critical Care Time: Yes Critical care time in (mins) excluding proc time.: 30 Critical care attestation.: If time is entered above; I have spent that time in minutes in the direct care of this critically ill patient, excluding procedure time. ED Disposition Clinical Impression: Status asthmaticus, Cough Disposition: DC-09 OP ADMIT IP TO THIS HOSP Is pt being admited?: Yes Does the pt Need Aspirin: No Condition: Serious Instructions: Asthma (ED) Referrals: CHIQUITA KIM MD [Primary Care Provider] - 3-5 Days
[2018-01-04] MEDS ORDERED: MAGNESIUM SULFATE 1 GM in NACL 0.9% 50 ML IV ONE (05:34)
[2018-01-04] MEDS ORDERED: XOPENEX IH PRN (08:07)
[2018-01-04] MEDS: NACL 0.9% 1000 ML 1,000 ML IV SCH ×2 (10:01→22:32)
[2018-01-04] MEDS: DUONEB *Not for PRN Use IH SCH ×2 (10:09→14:36)
[2018-01-04] MEDS ORDERED: PROVENTIL IH PRN (15:28)
--- NOTE | 2018-01-04 15:30 | History and Physical Report ---
History of Present Illness Date of admission: 01/04/18 05:33 Medications and Allergies Allergies Allergy/AdvReac Type Severity Reaction Status Date / Time No Known Allergies Allergy Unverified 06/23/13 09:07 Home Medications Medication Instructions Recorded Confirmed Last Taken Type ALBUTEROL Inhaler [ProAir HFA 2 puff IH QID PRN #1 inhalation 12/25/17 Unknown Rx Inhaler] ALBUTEROL NEB's [Proventil 0.083% 2.5 mg IH Q4H PRN #30 nebu 12/25/17 Unknown Rx NEBS] Levofloxacin [Levaquin TAB] 750 mg PO DAILY #5 day 12/25/17 Unknown Rx methylPREDNISolone [Medrol Dose 1 dose PO DAILY #1 pack 12/25/17 Unknown Rx Rick] Active Meds: Active Medications Albuterol (Proventil) 2.5 mg IH Q6HRT GLORIA Albuterol (Proventil) 2.5 mg IH Q4HRT PRN PRN Reason: Shortness Of Breath Arformoterol Tartrate (Brovana Nebu) 15 mcg IH Q12HRT GLORIA Budesonide (Pulmicort) 0.5 mg IH Q12HRT GLORIA Sodium Chloride (Nacl 0.9% 1000 Ml) 1,000 mls @ 100 mls/hr IV DIRECT GLORIA Last Admin: 01/04/18 10:01 Dose: 100 mls/hr Levalbuterol HCl (Xopenex) 1.25 mg IH PRN PRN PRN Reason: Shortness Of Breath Methylprednisolone Sodium Succinate (Solu-Medrol) 125 mg IV Q8HR GLORIA Last Admin: 01/04/18 10:01 Dose: 125 mg Exam - Constitutional Vitals: Temp Pulse Resp BP Pulse Ox 98.2 F 122 H 22 104/54 94 01/04/18 14:56 01/04/18 14:56 01/04/18 14:56 01/04/18 14:55 01/04/18 14:56 Results - Labs CBC & Chem 7: 01/03/18 22:01 01/03/18 22:01 Labs: Laboratory Last Values WBC 18.6 K/mm3 (4.5-11.0) H 01/03/18 22:01 RBC 4.97 M/mm3 (3.65-5.03) 01/03/18 22:01 Hgb 14.4 gm/dl (10.1-14.3) H 01/03/18 22:01 Hct 43.9 % (30.3-42.9) H 01/03/18 22:01 MCV 88 fl (79-97) 01/03/18 22:01 MCH 29 pg (28-32) 01/03/18 22:01 MCHC 33 % (30-34) 01/03/18 22:01 RDW 14.3 % (13.2-15.2) 01/03/18 22:01 Plt Count 316 K/mm3 (140-440) 01/03/18 22:01 Lymph % (Auto) 10.9 % (13.4-35.0) L 01/03/18 22:01 [place] % (Auto) 4.7 % (0.0-7.3) 01/03/18 22: Eos % (Auto) 1.8 % (0.0-4.3) 01/03/18 22:01 Baso % (Auto) 0.3 % (0.0-1.8) 01/03/18 22:01 Lymph # 2.0 K/mm3 (1.2-5.4) 01/03/18 22:01 [place] # 0.9 K/mm3 (0.0-0.8) H 01/03/18 22:01 Eos # 0.3 K/mm3 (0.0-0.4) 01/03/18 22:01 Baso # 0.1 K/mm3 (0.0-0.1) 01/03/18 22:01 Seg Neutrophils % 82.3 % (40.0-70.0) H 01/03/18 22:01 Seg Neutrophils # 15.3 K/mm3 (1.8-7.7) H 01/03/18 22:01 Sodium 140 mmol/L (137-145) 01/03/18 22:01 Potassium 3.5 mmol/L (3.6-5.0) L 01/03/18 22:01 Chloride 98.2 mmol/L (98-107) 01/03/18 22:01 Carbon Dioxide 26 mmol/L (22-30) 01/03/18 22:01 Anion Gap 19 mmol/L 01/03/18 22:01 BUN 8 mg/dL (7-17) 01/03/18 22:01 Creatinine 0.5 mg/dL (0.7-1.2) L 01/03/18 22:01 Estimated GFR > 60 ml/min 01/03/18 22:01 BUN/Creatinine Ratio 16 % 01/03/18 22:01 Glucose 101 mg/dL (65-100) H 01/03/18 22:01 Calcium 9.8 mg/dL (8.4-10.2) 01/03/18 22:01 Assessment and Plan Assessment and plan: 22F who pw asthma attack problems * asthma exacerbation * acute hypoxic respiratory failure * self pay plan continue nebs, steroids, oxygen and chest pt -needs better control meds, like inhaled steroid +/-LABA, but unable to afford it without insurance -tentative dc in 1-2 days
--- NOTE | 2018-01-04 16:48 | Consultation ---
History of Present Illness Consult date: 01/04/18 Reason for consult: dyspnea, asthma History of present illness: This is 22 year old white female obese, history of asthma since childhood admitted with shortness of breath, wheezing, chest tightness and cough. Coughing up white sputum.Denies sore throat or nasal congestion at this time.Denies fever,chills or hemoptysis.Patient has no known drug allergies. 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 No children.Patients last menstrual period is 1 week ago ,26 of December. Denies other medical problems. Smokes 1/4 pack a day x 8 years.Counselled to stop smoking. Patient having mild respiratory distress and she is on 2 litrs O2.O2 saturation 95%. Patient is on I/V solumedrol and aerosolized bronchodilators. Past History Past Medical History: other (Asthma.) Medications and Allergies Allergies Allergy/AdvReac Type Severity Reaction Status Date / Time No Known Allergies Allergy Unverified 06/23/13 09:07 Home Medications Medication Instructions Recorded Confirmed Last Taken Type ALBUTEROL Inhaler [ProAir HFA 2 puff IH QID PRN #1 inhalation 12/25/17 Unknown Rx Inhaler] ALBUTEROL NEB's [Proventil 0.083% 2.5 mg IH Q4H PRN #30 nebu 12/25/17 Unknown Rx NEBS] Levofloxacin [Levaquin TAB] 750 mg PO DAILY #5 day 12/25/17 Unknown Rx methylPREDNISolone [Medrol Dose 1 dose PO DAILY #1 pack 12/25/17 Unknown Rx Rick] Active Meds: Active Medications Albuterol (Proventil) 2.5 mg IH Q6HRT GLORIA Albuterol (Proventil) 2.5 mg IH Q4HRT PRN PRN Reason: Shortness Of Breath Arformoterol Tartrate (Brovana Nebu) 15 mcg IH Q12HRT GLORIA Budesonide (Pulmicort) 0.5 mg IH Q12HRT GLORIA Sodium Chloride (Nacl 0.9% 1000 Ml) 1,000 mls @ 100 mls/hr IV DIRECT GLORIA Last Admin: 01/04/18 10:01 Dose: 100 mls/hr Levalbuterol HCl (Xopenex) 1.25 mg IH PRN PRN PRN Reason: Shortness Of Breath Methylprednisolone Sodium Succinate (Solu-Medrol) 125 mg IV Q8HR [facility] Last Admin: 01/04/18 15:47 Dose: 125 mg Review of Systems All systems: negative Physical Examination Vital signs: Vital Signs Temp Pulse Resp BP Pulse Ox 99.3 F 92 H 16 106/65 92 01/03/18 21:31 01/03/18 21:31 01/03/18 21:31 01/03/18 21:31 01/03/18 21:31 General appearance: alert, appears uncomfortable, other (Having mild respiratory distress.) Eyes: non-icteric ENT: oropharynx moist Neck: supple, no JVD Ascultation: Bilateral: wheezes, rhonchi Cardiovascular: regular rate and rhythm Gastrointestinal: normoactive bowel sounds, soft, non-tender Integumentary: normal Extremities: no cyanosis, no edema Musculoskeletal: no deformities Gait: normal gait normal mental status, non-focal exam, pupils equal and round, CN II-XII normal mood appropriate Results - Laboratory Findings CBC and BMP: 01/03/18 22:01 01/03/18 22:01 Abnormal lab findings: Abnormal Labs 01/03/18 01/03/18 22:01 22:01 WBC 18.6 H Hgb 14.4 H Hct 43.9 H Lymph % (Auto) 10.9 L [place] # 0.9 H Seg Neutrophils % 82.3 H Seg Neutrophils # 15.3 H Potassium 3.5 L Creatinine 0.5 L Glucose 101 H - Diagnostic Findings Chest x-ray: report reviewed (Reported negative chest.), image reviewed Assessment and Plan This is 22 year old white female obese, history of asthma since childhood admitted with shortness of breath, wheezing, chest tightness and cough. Coughing up white sputum.Denies sore throat or nasal congestion at this time.Denies fever,chills or hemoptysis.Patient has no known drug allergies. 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 No children.Patients last menstrual period is 1 week ago ,26 of December. Denies other medical problems. Smokes 1/4 pack a day x 8 years.Counselled to stop smoking. Patient having mild respiratory distress and she is on 2 litrs O2.O2 saturation 95%. Patient is on I/V solumedrol and aerosolized bronchodilators. - Patient Problems (1) Acute exacerbation of extrinsic asthma Current Visit: Yes Status: Acute Plan to address problem: Continue O2 supplementation 2 litres via nasal canula. Continue I/V solumedrol. Continue Albuterol inhaler. (2) Acute bronchitis Current Visit: Yes Status: Acute Plan to address problem: Sputum for gram stain and C&S Starting on azithromycin.
[2018-01-04] MEDS ORDERED: ZITHROMAX PO ONE (18:00)
[2018-01-04] MEDS: PULMICORT IH SCH (20:41)
[2018-01-04] MEDS: BROVANA NEBU IH SCH (20:41)
[2018-01-04] MEDS: PROVENTIL IH SCH (21:24)
[2018-01-05] MEDS: PROVENTIL IH SCH ×3 (01:24→17:05)
[2018-01-05] MEDS: ZITHROMAX PO SCH (09:41)
[2018-01-05] MEDS: NACL 0.9% 1000 ML 1,000 ML IV SCH ×2 (09:42→23:38)
[2018-01-05] MEDS: PULMICORT IH SCH ×2 (12:00→19:59)
[2018-01-05] MEDS: BROVANA NEBU IH SCH ×2 (12:00→19:59)
--- NOTE | 2018-01-05 12:03 | Progress Note ---
Assessment and Plan This is 22 year old white female obese, history of asthma since childhood admitted with shortness of breath, wheezing, chest tightness and cough. Coughing up white sputum.Denies sore throat or nasal congestion at this time.Denies fever,chills or hemoptysis.Patient has no known drug allergies. 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 Not . No children.Patients last menstrual period is 1 week ago ,26 of December. Denies other medical problems. Smokes 1/4 pack a day x 8 years.Counselled to stop smoking. Patient having mild respiratory distress and she is on 2 litrs O2.O2 saturation 95%. Patient is on I/V solumedrol and aerosolized bronchodilators. 01/05/18 Still complaining chest tightness. No acute respiratory distress. On 2 litres O2.O2 saturation 94%.Still has non productive cough - Patient Problems (1) Acute exacerbation of extrinsic asthma Current Visit: Yes Status: Acute Plan to address problem: Continue O2 supplementation 2 litres via nasal canula. Continue I/V solumedrol. Continue Albuterol inhaler. (2) Acute bronchitis Current Visit: Yes Status: Acute Plan to address problem: Sputum for gram stain and C&S Starting on azithromycin. Subjective Date of service: 01/05/18 Interval history: Still complaining chest tightness. No acute respiratory distress. On 2 litres O2.O2 saturation 94%.Still has non productive cough Objective Vital Signs - 12hr 01/05/18 08:01 Temperature 98.0 F Pulse Rate 105 H O2 Sat by Pulse 94 Oximetry Constitutional: alert, appears uncomfortable, other (Having mild respiratory distress.) Eyes: non-icteric ENT: oropharynx moist Neck: supple, no JVD Ascultation: Bilateral: wheezes, rhonchi Cardiovascular: regular rate and rhythm Gastrointestinal: normoactive bowel sounds, soft, non-tender Integumentary: normal Extremities: no cyanosis, no edema Neurologic: normal mental status, non-focal exam, pupils equal and round, CN II- XII normal Psychiatric: mood appropriate CBC and BMP: 01/03/18 22:01 01/03/18 22:01 ABG, PT/INR, D-dimer: ABG POC ABG pH 7.416 (7.35-7.45) 01/04/18 18:14 POC ABG pCO2 32.3 (35-45) L 01/04/18 18:14 POC ABG pO2 69 (80-105) L 01/04/18 18:14 POC ABG HCO3 20.8 01/04/18 18:14 POC ABG Total CO2 22 01/04/18 18:14 POC ABG O2 Sat 94 01/04/18 18:14 Abnormal lab findings: Abnormal Labs 01/03/18 01/03/18 01/04/18 22:01 22:01 18:14 WBC 18.6 H Hgb 14.4 H Hct 43.9 H Lymph % (Auto) 10.9 L [place] # 0.9 H Seg Neutrophils % 82.3 H Seg Neutrophils # 15.3 H POC ABG pCO2 32.3 L POC ABG pO2 69 L Potassium 3.5 L Creatinine 0.5 L Glucose 101 H
--- NOTE | 2018-01-06 00:25 | Progress Note ---
Assessment and Plan Assessment and plan: 22F who pw asthma attack problems * asthma exacerbation * acute hypoxic respiratory failure * self pay plan continue nebs, steroids, oxygen and chest pt -needs better control meds, like inhaled steroid +/-LABA, but unable to afford it without insurance, d/w cm about finding her a [employer] program -tentative dc in 1-2 days History Interval history: Review of systems Constitutional: No fevers, no malaise, no joint pains CVS: No chest pain, no orthopnea, no dyspnea on exertion, no pedal edema GI: No abdominal pain, no diarrhea, no vomiting, no constipation Respiratory: c/o cough, sob, wheezing Hospitalist Physical - Physical exam Narrative exam: General.: Appears well, no distress, nontoxic HEENT: Moist mucous membranes, extraocular muscles intact, no lymphadenopathy Neck: supple Cardiac: S1-S2 heard Lungs: decreased air entry, wheezing Abdomen: soft , nontender, nondistended, bowel sounds positive Extremities: no edema clubbing or cyanosis Skin: no rash or lesions Neurologic: no gross focal deficits Psych: appropriate behavior, appropriate mood, corporative, judgment intact - Constitutional Vitals: Temp Pulse Resp BP Pulse Ox 99.2 F 80 20 116/70 94 01/05/18 16:42 01/05/18 20:10 01/05/18 22:00 01/05/18 16:42 01/05/18 16:42 Results - Labs CBC & Chem 7: 01/03/18 22:01 01/03/18 22:01 Labs: Laboratory Last Values WBC 18.6 K/mm3 (4.5-11.0) H 01/03/18 22:01 RBC 4.97 M/mm3 (3.65-5.03) 01/03/18 22:01 Hgb 14.4 gm/dl (10.1-14.3) H 01/03/18 22:01 Hct 43.9 % (30.3-42.9) H 01/03/18 22:01 MCV 88 fl (79-97) 01/03/18 22:01 MCH 29 pg (28-32) 01/03/18 22:01 MCHC 33 % (30-34) 01/03/18 22:01 RDW 14.3 % (13.2-15.2) 01/03/18 22:01 Plt Count 316 K/mm3 (140-440) 01/03/18 22:01 Lymph % (Auto) 10.9 % (13.4-35.0) L 01/03/18 22:01 [place] % (Auto) 4.7 % (0.0-7.3) 01/03/18 22:01 Eos % (Auto) 1.8 % (0.0-4.3) 01/03/18 22:01 Baso % (Auto) 0.3 % (0.0-1.8) 01/03/18 22:01 Lymph # 2.0 K/mm3 (1.2-5.4) 01/03/18 22:01 [place] # 0.9 K/mm3 (0.0-0.8) H 01/03/18 22:01 Eos # 0.3 K/mm3 (0.0-0.4) 01/03/18 22:01 Baso # 0.1 K/mm3 (0.0-0.1) 01/03/18 22:01 Seg Neutrophils % 82.3 % (40.0-70.0) H 01/03/18 22:01 Seg Neutrophils # 15.3 K/mm3 (1.8-7.7) H 01/03/18 22:01 POC ABG pH 7.416 (7.35-7.45) 01/04/18 18:14 POC ABG pCO2 32.3 (35-45) L 01/04/18 18:14 POC ABG pO2 69 (80-105) L 01/04/18 18:14 POC ABG HCO3 20.8 01/04/18 18:14 POC ABG Total CO2 22 01/04/18 18:14 POC ABG O2 Sat 94 01/04/18 18:14 POC ABG Base Excess -4 01/04/18 18:14 FiO2 21 % 01/04/18 18:14 Sodium 140 mmol/L (137-145) 01/03/18 22:01 Potassium 3.5 mmol/L (3.6-5.0) L 01/03/18 22:01 Chloride 98.2 mmol/L (98-107) 01/03/18 22:01 Carbon Dioxide 26 mmol/L (22-30) 01/03/18 22:01 Anion Gap 19 mmol/L 01/03/18 22:01 BUN 8 mg/dL (7-17) 01/03/18 22:01 Creatinine 0.5 mg/dL (0.7-1.2) L 01/03/18 22:01 Estimated GFR > 60 ml/min 01/03/18 22:01 BUN/Creatinine Ratio 16 % 01/03/18 22:01 Glucose 101 mg/dL (65-100) H 01/03/18 22:01 Calcium 9.8 mg/dL (8.4-10.2) 01/03/18 22:01
[2018-01-06] MEDS: PROVENTIL IH SCH ×5 (00:48→20:36)
[2018-01-06] MEDS: BROVANA NEBU IH SCH ×2 (08:11→20:35)
[2018-01-06] MEDS: PULMICORT IH SCH ×2 (08:11→20:35)
[2018-01-06] MEDS: NACL 0.9% 1000 ML 1,000 ML IV SCH ×2 (09:40→19:44)
[2018-01-06] MEDS: ZITHROMAX PO SCH (09:41)
--- NOTE | 2018-01-06 13:02 | Progress Note ---
Assessment and Plan Acute Asthma Exacerbation Acute Bronchitis Obesity - continue systemic steroids - continue bronchodilators and pulmonary toilet - continue EREN, LABA & ICS - GI & VTE prophylaxis - Flu & pneumovax per protocol ...d/c planning for 24-48 hours Subjective Date of service: 01/06/18 Principal diagnosis: Acute Asthma Exacerbation Interval history: Patient seen today for: Acute Asthma Exacerbation; Obesity Seen and examined at bedside; 24-hour events reviewed; nursing and respiratory care staff consulted; no adverse overnight events reported to me; still SOB; ; still wheezing; no N/V/F/C; denies any expectoration Objective Vital Signs - 12hr 01/06/18 01/06/18 01/06/18 02:44 07:28 08:11 Temperature 97.8 F Pulse Rate 60 Pulse Rate [ 54 L Anterior Bilateral Throughout] Pulse Rate [ 73 Posterior Bilateral Lower Lobe] Respiratory 20 Rate Respiratory 20 Rate [Anterior Bilateral Throughout] Respiratory 18 Rate [Posterior Bilateral Lower Lobe] Blood Pressure 119/62 O2 Sat by Pulse 95 Oximetry 01/06/18 01/06/18 08:21 11:29 Temperature Pulse Rate Pulse Rate [ 112 H Anterior Bilateral Throughout] Pulse Rate [ Posterior Bilateral Lower Lobe] Respiratory Rate Respiratory 20 Rate [Anterior Bilateral Throughout] Respiratory Rate [Posterior Bilateral Lower Lobe] Blood Pressure O2 Sat by Pulse 96 Oximetry Constitutional: alert, appears uncomfortable, other (Having mild respiratory distress.) Eyes: non-icteric ENT: oropharynx moist, other (mallampati 3) Neck: supple, no lymphadenopathy, no JVD, other (no thyromegaly) Ascultation: Bilateral: wheezes (expiratory), rhonchi (expiratory) Cardiovascular: regular rate and rhythm, other (no rubs/murmurs) Gastrointestinal: normoactive bowel sounds, soft, non-tender Integumentary: normal Extremities: no cyanosis, no edema, pink and warm, no ischemia or petechiae Neurologic: normal mental status, non-focal exam, pupils equal and round, CN II- XII normal Psychiatric: mood appropriate, affect normal CBC and BMP: 01/03/18 22:01 01/03/18 22:01 ABG, PT/INR, D-dimer: ABG POC ABG pH 7.416 (7.35-7.45) 01/04/18 18:14 POC ABG pCO2 32.3 (35-45) L 01/04/18 18:14 POC ABG pO2 69 (80-105) L 01/04/18 18:14 POC ABG HCO3 20.8 01/04/18 18:14 POC ABG Total CO2 22 01/04/18 18:14 POC ABG O2 Sat 94 01/04/18 18:14 Abnormal lab findings: Abnormal Labs 01/03/18 01/03/18 01/04/18 22:01 22:01 18:14 WBC 18.6 H Hgb 14.4 H Hct 43.9 H Lymph % (Auto) 10.9 L [place] # 0.9 H Seg Neutrophils % 82.3 H Seg Neutrophils # 15.3 H POC ABG pCO2 32.3 L POC ABG pO2 69 L Potassium 3.5 L Creatinine 0.5 L Glucose 101 H Chest x-ray: image reviewed (no acute process)
--- NOTE | 2018-01-06 15:05 | Discharge Summary ---
Providers - Providers Date of Admission: 01/04/18 05:33 Attending physician: YURI ABDALLA MD 01/04/18 15:27 Consult to Physician [CONS] Routine Comment: Consulting Provider: CARTER WISE Physician Instructions: Reason For Exam: asthma Primary care physician: CHIQUITA KIM Hospitalization Condition: Serious Hospital course: 22F who pw asthma attack. She was treated with nebs, steroids oxygen and chest PT. It appears that she has frequent asthma attacks because she's not on control medications such as inhaled steroid +/-LABA, she clinically improved. Case management provided her with discount cards for control inhalers/inhaled steroids. She was weaned of oxygen to room air and subsequently discharged home. . Diagnosis * asthma exacerbation * acute hypoxic respiratory failure Disposition: - TO HOME OR SELFCARE Time spent for discharge: 33 minutes Core Measure Documentation - Palliative Care Palliative Care/ Comfort Measures: Not Applicable - Core Measures Any of the following diagnoses?: none Exam - Constitutional Vitals: Temp Pulse Resp BP Pulse Ox 97.8 F 112 H 20 119/62 96 01/06/18 07:28 01/06/18 08:21 01/06/18 08:21 01/06/18 07:28 01/06/18 11:29 General appearance: Present: no acute distress, well-nourished - EENT Eyes: Present: PERRL ENT: hearing intact, clear oral mucosa - Neck Neck: Present: supple, normal ROM - Respiratory Respiratory effort: normal Respiratory: bilateral: CTA - Cardiovascular Heart Sounds: Present: S1 & S2. Absent: rub, click - Extremities Extremities: pulses symmetrical, No edema Peripheral Pulses: within normal limits - Abdominal General gastrointestinal: Present: soft, non-tender, non-distended, normal bowel sounds Female genitourinary: Present: normal - Integumentary Integumentary: Present: clear, warm, dry - Musculoskeletal Musculoskeletal: gait normal, strength equal bilaterally - Psychiatric Psychiatric: appropriate mood/affect, intact judgment & insight - Neurologic Neurologic: CNII-XII intact, moves all extremities Plan Follow up with: CHIQUITA KIM MD [Primary Care Provider] - 3-5 Days Prescriptions: ALBUTEROL Inhaler [ProAir HFA Inhaler] 2 puff IH QID PRN #1 inhalation PRN Reason: Shortness Of Breath ALBUTEROL NEB's [Proventil 0.083% NEBS] 2.5 mg IH Q4H PRN #120 nebu PRN Reason: Shortness Of Breath Azithromycin [Zithromax TAB] 250 mg PO QDAY #4 tablet Beclomethasone Dipropionate [Qvar] 8.7 gm IH BID #1 aer.w.adap Prednisone [predniSONE 10 mg (6-Day Pack, 21 Tabs)] 10 mg PO .TAPER #1 tab.ds.pk
--- NOTE | 2018-01-06 17:27 | Progress Note ---
Assessment and Plan Assessment and plan: 22F who pw asthma attack problems * asthma exacerbation * acute hypoxic respiratory failure * self pay plan continue nebs, steroids, oxygen and chest pt -pulmonology consult -needs better control meds, like inhaled steroid +/-LABA, but unable to afford it without insurance, cm to obtain discount for an MDI -tentative dc in 1-2 days History Interval history: Review of systems Constitutional: No fevers, no malaise, no joint pains CVS: No chest pain, no orthopnea, no dyspnea on exertion, no pedal edema GI: No abdominal pain, no diarrhea, no vomiting, no constipation Respiratory: c/o cough, sob, wheezing Hospitalist Physical - Physical exam Narrative exam: General.: Appears well, no distress, nontoxic HEENT: Moist mucous membranes, extraocular muscles intact, no lymphadenopathy Neck: supple Cardiac: S1-S2 heard Lungs: decreased air entry, wheezing Abdomen: soft , nontender, nondistended, bowel sounds positive Extremities: no edema clubbing or cyanosis Skin: no rash or lesions Neurologic: no gross focal deficits Psych: appropriate behavior, appropriate mood, corporative, judgment intact - Constitutional Vitals: Temp Pulse Resp BP Pulse Ox 97.7 F 108 H 18 99/56 96 01/06/18 15:46 01/06/18 13:41 01/06/18 15:46 01/06/18 15:46 01/06/18 11:29 General appearance: Present: no acute distress, well-nourished Results - Labs CBC & Chem 7: 01/03/18 22:01 01/03/18 22:01 Labs: Laboratory Last Values WBC 18.6 K/mm3 (4.5-11.0) H 01/03/18 22:01 RBC 4.97 M/mm3 (3.65-5.03) 01/03/18 22:01 Hgb 14.4 gm/dl (10.1-14.3) H 01/03/18 22:01 Hct 43.9 % (30.3-42.9) H 01/03/18 22:01 MCV 88 fl (79-97) 01/03/18 22:01 MCH 29 pg (28-32) 01/03/18 22:01 MCHC 33 % (30-34) 01/03/18 22:01 RDW 14.3 % (13.2-15.2) 01/03/18 22:01 Plt Count 316 K/mm3 (140-440) 01/03/18 22:01 Lymph % (Auto) 10.9 % (13.4-35.0) L 01/03/18 22:01 [place] % (Auto) 4.7 % (0.0-7.3) 01/03/18 22:01 Eos % (Auto) 1.8 % (0.0-4.3) 01/03/18 22:01 Baso % (Auto) 0.3 % (0.0-1.8) 01/03/18 22:01 Lymph # 2.0 K/mm3 (1.2-5.4) 01/03/18 22:01 [place] # 0.9 K/mm3 (0.0-0.8) H 01/03/18 22:01 Eos # 0.3 K/mm3 (0.0-0.4) 01/03/18 22:01 Baso # 0.1 K/mm3 (0.0-0.1) 01/03/18 22:01 Seg Neutrophils % 82.3 % (40.0-70.0) H 01/03/18 22:01 Seg Neutrophils # 15.3 K/mm3 (1.8-7.7) H 01/03/18 22:01 POC ABG pH 7.416 (7.35-7.45) 01/04/18 18:14 POC ABG pCO2 32.3 (35-45) L 01/04/18 18:14 POC ABG pO2 69 (80-105) L 01/04/18 18:14 POC ABG HCO3 20.8 01/04/18 18:14 POC ABG Total CO2 22 01/04/18 18:14 POC ABG O2 Sat 94 01/04/18 18:14 POC ABG Base Excess -4 01/04/18 18:14 FiO2 21 % 01/04/18 18:14 Sodium 140 mmol/L (137-145) 01/03/18 22:01 Potassium 3.5 mmol/L (3.6-5.0) L 01/03/18 22:01 Chloride 98.2 mmol/L (98-107) 01/03/18 22:01 Carbon Dioxide 26 mmol/L (22-30) 01/03/18 22:01 Anion Gap 19 mmol/L 01/03/18 22:01 BUN 8 mg/dL (7-17) 01/03/18 22:01 Creatinine 0.5 mg/dL (0.7-1.2) L 01/03/18 22:01 Estimated GFR > 60 ml/min 01/03/18 22:01 BUN/Creatinine Ratio 16 % 01/03/18 22:01 Glucose 101 mg/dL (65-100) H 01/03/18 22:01 Calcium 9.8 mg/dL (8.4-10.2) 01/03/18 22:01
[2018-01-07] MEDS: PROVENTIL IH SCH ×4 (01:53→20:40)
[2018-01-07] MEDS: NACL 0.9% 1000 ML 1,000 ML IV SCH ×2 (06:55→17:36)
[2018-01-07] MEDS: ZITHROMAX PO SCH (09:41)
[2018-01-07] MEDS: BROVANA NEBU IH SCH ×2 (10:11→22:03)
[2018-01-07] MEDS: PULMICORT IH SCH ×3 (10:24→20:40)
--- NOTE | 2018-01-07 14:35 | Progress Note ---
Assessment and Plan - Patient Problems (1) Acute exacerbation of extrinsic asthma Current Visit: Yes Status: Acute (2) Low oxygen saturation Current Visit: No Status: Acute Subjective Date of service: 01/07/18 Principal diagnosis: Acute Asthma Exacerbation Objective Vital Signs - 12hr 01/07/18 01/07/18 07:33 10:25 Temperature 98.0 F Pulse Rate 49 L Pulse Rate [ 84 Anterior Bilateral Throughout] Pulse Rate [ 75 Posterior Bilateral Lower Lobe] Respiratory 14 Rate Respiratory 18 Rate [Anterior Bilateral Throughout] Respiratory 18 Rate [Posterior Bilateral Lower Lobe] Blood Pressure 108/57 O2 Sat by Pulse 93 Oximetry Constitutional: alert, appears uncomfortable, other (Having mild respiratory distress.) Eyes: non-icteric ENT: oropharynx moist Neck: supple, no JVD Ascultation: Bilateral: wheezes, rhonchi Cardiovascular: regular rate and rhythm Gastrointestinal: normoactive bowel sounds, soft, non-tender Integumentary: normal Extremities: no cyanosis, no edema Neurologic: normal mental status, non-focal exam, pupils equal and round, CN II- XII normal Psychiatric: mood appropriate CBC and BMP: 01/03/18 22:01 01/03/18 22:01 ABG, PT/INR, D-dimer: ABG POC ABG pH 7.416 (7.35-7.45) 01/04/18 18:14 POC ABG pCO2 32.3 (35-45) L 01/04/18 18:14 POC ABG pO2 69 (80-105) L 01/04/18 18:14 POC ABG HCO3 20.8 01/04/18 18:14 POC ABG Total CO2 22 01/04/18 18:14 POC ABG O2 Sat 94 01/04/18 18:14 Abnormal lab findings: Abnormal Labs 01/03/18 01/03/18 01/04/18 22:01 22:01 18:14 WBC 18.6 H Hgb 14.4 H Hct 43.9 H Lymph % (Auto) 10.9 L [place] # 0.9 H Seg Neutrophils % 82.3 H Seg Neutrophils # 15.3 H POC ABG pCO2 32.3 L POC ABG pO2 69 L Potassium 3.5 L Creatinine 0.5 L Glucose 101 H
--- NOTE | 2018-01-07 20:25 | Progress Note ---
Assessment and Plan Assessment and plan: 22F who pw asthma attack problems * asthma exacerbation * acute hypoxic respiratory failure * self pay plan continue nebs, steroids, oxygen and chest pt -pulmonology consult -needs better control meds, like inhaled steroid +/-LABA, but unable to afford it without insurance, cm to obtain discount for an MDI -per CM, can get one free month of symbicort and can get discount plan for qvar -tentative dc in 1-2 days History Interval history: Review of systems Constitutional: No fevers, no malaise, no joint pains CVS: No chest pain, no orthopnea, no dyspnea on exertion, no pedal edema GI: No abdominal pain, no diarrhea, no vomiting, no constipation Respiratory: c/o cough, sob, wheezing Hospitalist Physical - Physical exam Narrative exam: General.: Appears well, no distress, nontoxic HEENT: Moist mucous membranes, extraocular muscles intact, no lymphadenopathy Neck: supple Cardiac: S1-S2 heard Lungs: decreased air entry, wheezing Abdomen: soft , nontender, nondistended, bowel sounds positive Extremities: no edema clubbing or cyanosis Skin: no rash or lesions Neurologic: no gross focal deficits Psych: appropriate behavior, appropriate mood, corporative, judgment intact - Constitutional Vitals: Temp Pulse Resp BP Pulse Ox 97.8 F 78 20 118/68 94 01/07/18 15:40 01/07/18 15:40 01/07/18 15:40 01/07/18 15:40 01/07/18 15:40 General appearance: Present: no acute distress, well-nourished Results - Labs CBC & Chem 7: 01/03/18 22:01 01/03/18 22:01 Labs: Laboratory Last Values WBC 18.6 K/mm3 (4.5-11.0) H 01/03/18 22:01 RBC 4.97 M/mm3 (3.65-5.03) 01/03/18 22:01 Hgb 14.4 gm/dl (10.1-14.3) H 01/03/18 22:01 Hct 43.9 % (30.3-42.9) H 01/03/18 22:01 MCV 88 fl (79-97) 01/03/18 22:01 MCH 29 pg (28-32) 01/03/18 22:01 MCHC 33 % (30-34) 01/03/18 22:01 RDW 14.3 % (13.2-15.2) 01/03/18 22:01 Plt Count 316 K/mm3 (140-440) 01/03/18 22:01 Lymph % (Auto) 10.9 % (13.4-35.0) L 01/03/18 22:01 [place] % (Auto) 4.7 % (0.0-7.3) 01/03/18 22:01 Eos % (Auto) 1.8 % (0.0-4.3) 01/03/18 22:01 Baso % (Auto) 0.3 % (0.0-1.8) 01/03/18 22: Lymph # 2.0 K/mm3 (1.2-5.4) 01/03/18 22:01 [place] # 0.9 K/mm3 (0.0-0.8) H 01/03/18 22:01 Eos # 0.3 K/mm3 (0.0-0.4) 01/03/18 22:01 Baso # 0.1 K/mm3 (0.0-0.1) 01/03/18 22:01 Seg Neutrophils % 82.3 % (40.0-70.0) H 01/03/18 22: Seg Neutrophils # 15.3 K/mm3 (1.8-7.7) H 01/03/18 22:01 POC ABG pH 7.416 (7.35-7.45) 01/04/18 18:14 POC ABG pCO2 32.3 (35-45) L 01/04/18 18:14 POC ABG pO2 69 (80-105) L 01/04/18 18:14 POC ABG HCO3 20.8 01/04/18 18:14 POC ABG Total CO2 22 01/04/18 18:14 POC ABG O2 Sat 94 01/04/18 18:14 POC ABG Base Excess -4 01/04/18 18:14 FiO2 21 % 01/04/18 18:14 Sodium 140 mmol/L (137-145) 01/03/18 22:01 Potassium 3.5 mmol/L (3.6-5.0) L 01/03/18 22:01 Chloride 98.2 mmol/L (98-107) 01/03/18 22:01 Carbon Dioxide 26 mmol/L (22-30) 01/03/18 22:01 Anion Gap 19 mmol/L 01/03/18 22:01 BUN 8 mg/dL (7-17) 01/03/18 22:01 Creatinine 0.5 mg/dL (0.7-1.2) L 01/03/18 22:01 Estimated GFR > 60 ml/min 01/03/18 22:01 BUN/Creatinine Ratio 16 % 01/03/18 22:01 Glucose 101 mg/dL (65-100) H 01/03/18 22:01 Calcium 9.8 mg/dL (8.4-10.2) 01/03/18 22:01
[2018-01-08] MEDS: PROVENTIL IH SCH ×3 (02:14→14:22)
[2018-01-08] MEDS: NACL 0.9% 1000 ML 1,000 ML IV SCH (04:28)
[2018-01-08] MEDS: BROVANA NEBU IH SCH (08:20)
[2018-01-08] MEDS: PULMICORT IH SCH (08:20)
[2018-01-08] MEDS: ZITHROMAX PO SCH (10:32)
--- NOTE | 2018-01-08 13:10 | Progress Note ---
Assessment and Plan Acute Asthma Exacerbation Acute Bronchitis Obesity - continue systemic steroids - continue bronchodilators and pulmonary toilet - continue EREN, LABA & ICS - GI & VTE prophylaxis - Flu & pneumovax per protocol ...d/c planning for 24-48 hours Subjective Date of service: 01/08/18 Principal diagnosis: Acute Asthma Exacerbation Interval history: Patient seen today for: Acute Asthma Exacerbation; Obesity Seen and examined at bedside; 24-hour events reviewed; nursing and respiratory care staff consulted; no adverse overnight events reported to me; still SOB; ; still wheezing; no N/V/F/C; Objective Vital Signs - 12hr 01/08/18 01/08/18 01/08/18 02:15 02:25 08:20 Temperature Pulse Rate Pulse Rate [ 79 82 56 L Posterior Bilateral Lower Lobe] Respiratory Rate Respiratory 18 18 18 Rate [Posterior Bilateral Lower Lobe] Blood Pressure O2 Sat by Pulse Oximetry 01/08/18 01/08/18 08:30 08:39 Temperature 97.4 F L Pulse Rate 79 Pulse Rate [ 64 Posterior Bilateral Lower Lobe] Respiratory 18 Rate Respiratory 18 Rate [Posterior Bilateral Lower Lobe] Blood Pressure 108/57 O2 Sat by Pulse 92 Oximetry Constitutional: alert, appears uncomfortable, other (Having mild respiratory distress.) Eyes: non-icteric ENT: oropharynx moist, other (mallampati 3) Neck: supple, no lymphadenopathy, no JVD, other (no thyromegaly) Ascultation: Bilateral: wheezes (expiratory), rhonchi (expiratory) Cardiovascular: regular rate and rhythm, other (no rubs/murmurs) Gastrointestinal: normoactive bowel sounds, soft, non-tender Integumentary: normal Extremities: no cyanosis, no edema, pink and warm, no ischemia or petechiae Neurologic: normal mental status, non-focal exam, pupils equal and round, CN II- XII normal Psychiatric: mood appropriate, affect normal CBC and BMP: 01/03/18 22:01 01/03/18 22:01 ABG, PT/INR, D-dimer: ABG POC ABG pH 7.416 (7.35-7.45) 01/04/18 18:14 POC ABG pCO2 32.3 (35-45) L 01/04/18 18:14 POC ABG pO2 69 (80-105) L 01/04/18 18:14 POC ABG HCO3 20.8 01/04/18 18:14 POC ABG Total CO2 22 01/04/18 18:14 POC ABG O2 Sat 94 01/04/18 18:14 Abnormal lab findings: Abnormal Labs 01/03/18 01/03/18 01/04/18 22:01 22:01 18:14 WBC 18.6 H Hgb 14.4 H Hct 43.9 H Lymph % (Auto) 10.9 L Harper # 0.9 H Seg Neutrophils % 82.3 H Seg Neutrophils # 15.3 H POC ABG pCO2 32.3 L POC ABG pO2 69 L Potassium 3.5 L Creatinine 0.5 L Glucose 101 H
--- NOTE | 2018-01-08 13:15 | Discharge Summary ---
Providers - Providers Date of Admission: 01/04/18 05:33 Date of discharge: 01/08/18 Attending physician: BREE SMITH MD 01/04/18 15:27 Consult to Physician [CONS] Routine Comment: Consulting Provider: CARTER WISE Physician Instructions: Reason For Exam: asthma Primary care physician: CHIQUITA KIM Hospitalization Reason for admission: acute asthma exacerbation Condition: Stable Pertinent studies: CXR no acute chest findings Hospital course: 22 year old white obese female with history of asthma since childhood admitted with shortness of breath, wheezing, chest tightness and cough productive of white sputum. Denies fever,chills or hemoptysis. Patient has no known drug allergies. 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 Smokes 1/4 pack a day x 8 years. Patient was admitted for acute hypoxic respiratory failure secondary to asthma exacerbation, then treated with IV Solu-Medrol, nebulizer, oxygen support and antibiotics. Patient was saturating well without oxygen. Patient's shortness of breath was getting better. Patient is given a tapering dose of steroid, nebulizer, antibiotics as a time of discharge. counseling services manager give a form for symbicort and quvar to be delivered at home. Patient extensively counselled about cessation of smoking. Patient was hemodynamically stable at the time of discharge. Patient's questions and concerns were addressed at bedside. Disposition: DC-01 TO HOME OR SELFCARE Time spent for discharge: 31 minutes - Discharge Diagnoses (1) Acute exacerbation of extrinsic asthma Status: Acute (2) Acute respiratory failure with hypoxia Status: Acute Core Measure Documentation - Palliative Care Palliative Care/ Comfort Measures: Not Applicable - Core Measures Any of the following diagnoses?: none Exam - Physical Exam Narrative exam: Not in cardiopulmonary distress. The patient is obese. Vital signs as documented. Head exam is unremarkable. No scleral icterus . Neck is without jugular venous distension, thyromegaly, or carotid bruits. Lungs scattered wheezing all over the chest. Cardiac exam reveals regular rate and Rhythm. First and second heart sounds normal. No murmurs, rubs or gallops. Abdominal exam reveals normal bowel sounds, no masses, no organomegaly and no aortic enlargement. Extremities are nonedematous and both femoral and pedal pulses are normal. BUSINESS ANALYST MANAGER: Alert and oriented 3. No focal weakness. - Constitutional Vitals: Temp Pulse Resp BP Pulse Ox 97.4 F L 79 18 108/57 92 03/28/18 08:39 01/08/18 08:39 01/08/18 08:39 01/08/18 08:39 01/08/18 08:39 Plan Activity: no restrictions Weight Bearing Status: Full Weight Bearing Follow up with: CHIQUITA KIM MD [Primary Care Provider] - 3-5 Days Forms: Work/School Release Form Prescriptions: ALBUTEROL Inhaler [ProAir HFA Inhaler] 2 puff IH QID PRN #1 inhalation PRN Reason: Shortness Of Breath ALBUTEROL NEB's [Proventil 0.083% NEBS] 2.5 mg IH Q4H PRN #120 nebu PRN Reason: Shortness Of Breath Azithromycin [Zithromax TAB] 250 mg PO QDAY #4 tablet Beclomethasone Dipropionate [Qvar] 8.7 gm IH BID #1 aer.w.adap Prednisone [predniSONE 10 mg (6-Day Pack, 21 Tabs)] 10 mg PO .TAPER #1 tab.ds.pk
[2018-01-08 16:08] VITALS: BP 107/55
== END 2018-01-08 18:30 | disposition home or self-care (01) | DRG 189 ==
LOC: ED 21:23 → 4A 01-04 05:33 → 3A 01-04 08:18
PROVIDERS: ADMIT Internal Medicine; ATTEND Internal Medicine
PROC: 4A033R1 Measurement of Arterial Saturation, Peripheral, Percutaneous Approach (ICD-10-PCS; principal; 2018-01-04)
DX: J96.00 Acute respiratory failure, unspecified whether with hypoxia or hypercapnia (principal); J45.902 Unspecified asthma with status asthmaticus; J20.9 Acute bronchitis, unspecified; F17.210 Nicotine dependence, cigarettes, uncomplicated; E66.9 Obesity, unspecified; Z79.899 Other long term (current) drug therapy; Z79.2 Long term (current) use of antibiotics; Z71.6 Tobacco abuse counseling; Z68.39 Body mass index [BMI] 39.0-39.9, adult
CPT/HCPCS: 36415; 36600; 71046; 80048; 82803; 85025; 94640; 94760; 96374; 96375; 99291; J2930; J3475; J7030

== ENCOUNTER 2020-08-16 12:25 | Emergency (ER) | payer SELFPAY ==
[2020-08-16 13:06] VITALS: BP 129/75
--- NOTE | 2020-08-16 13:17 | Event Note ---
ED Screening Note ED Screening Note: upper abd pain feels like "fire and burning" after drinking coffee +nausea two episodes of vomiting no diarrhea normal bm today PMHx asthma, pcos no allergies to meds LNMP: 70 days This initial assessment/diagnostic orders/clinical plan/treatment(s) is/are subject to change based on patients health status, clinical progression and re- assessment by fellow clinical providers in the ED. Further treatment and workup at subsequent clinical providers discretion. Patient/guardian urged not to elope from the ED as their condition may be serious if not clinically assessed and managed. Initial orders include: labs, UA
[2020-08-16 14:04] LABS: Bacteria,Urine 1+ /HPF (Negative); Bilirubin,Urine NEG (Negative); Blood,Urine NEG (Negative); Color,Urine Straw (Yellow); Protein,Urine <15 mg/dL mg/dL (Negative); RBC,Urine < 1.0 /HPF (0.0-6.0); Urobilinogen,Urine < 2.0 mg/dL (<2.0)
[2020-08-16 14:46] LABS: Basophils # (Auto) 0.1 K/mm3 (0.0-0.1); Basophils % (Auto) 0.7 % (0.0-1.8); Eosinophils # (Auto) 0.5 K/mm3 (0.0-0.4); Eosinophils % (Auto) 3.9 % (0.0-4.3); Hematocrit 39.2 % (30.3-42.9); Hemoglobin 13.2 gm/dl (10.1-14.3); Lymphocytes # (Auto) 2.6 K/mm3 (1.2-5.4); Lymphocytes % (Auto) 21.3 % (13.4-35.0); Mean Corpuscular HGB Conc 34 % (30-34); Mean Corpuscular Volume 86 fl (79-97); Monocytes # (Auto) 0.5 K/mm3 (0.0-0.8); Monocytes % (Auto) 3.9 % (0.0-7.3); Platelet Count 325 K/mm3 (140-440); Red Blood Count 4.54 M/mm3 (3.65-5.03); Red Cell Distribution Width 14.6 % (13.2-15.2)
[2020-08-16] MEDS ORDERED: diphenhydrAMINE 25 MG/10 ML ORAL LIQUID PO ONE (14:46)
[2020-08-16] MEDS ORDERED: LIDOCAINE VISCOUS 2% 15 ML ORAL LIQD PO ONE (14:46)
[2020-08-16] MEDS ORDERED: ALUM-MAG HYDROXIDE-SIMETHICONE 200-200-20MG/5ML ORAL LIQD 30 ML PO STA (14:46)
[2020-08-16 14:48] LABS: Alanine Aminotransferase 22 units/L (7-56); Albumin 4.6 g/dL (3.9-5); Blood Urea Nitrogen 8 mg/dL (7-17); Calcium 9.7 mg/dL (8.4-10.2); Hemolysis Index 2
--- NOTE | 2020-08-16 14:48 | Emergency Department Report ---
ED Abdominal Pain HPI - General Chief Complaint: Abdominal Pain Stated Complaint: ABD PAIN, VOMITING Time Seen by Provider: 08/16/20 13:15 Source: patient Mode of arrival: Ambulatory Limitations: No Limitations - History of Present Illness Initial Comments: 24-year-old obese -Swiss female that emerge department complaining of a couple hours history of abdominal pain primarily to the left upper quadrant and epigastric region and a very significant burning sensation which occurred after she drank coffee. She reports episodes vomiting spastic leg pain which continues to linger but reports no hemoptysis no hematemesis no hematochezia no diarrhea no constipation. Reports no chest pain or palpitations. -: Gradual Location: diffuse Radiation: none, epigastric Severity: mild Quality: burning Consistency: constant Improves With: nothing Worsens With: nothing Associated Symptoms: denies other symptoms, nausea, vomiting. denies: constipation, dysuria, hematemesis, hematuria, anorexia, syncope - Related Data Previous Rx's Medication Instructions Recorded Last Taken Type ALBUTEROL NEB's [Proventil 0.083% 2.5 mg IH Q4H PRN #120 nebu 01/06/18 Unknown Rx NEBS] Albuterol Mdi (or & Nicu Only) 2 puff IH QID PRN #1 inhalation 01/06/18 Unknown Rx [ProAir HFA Inhaler] Azithromycin [Zithromax TAB] 250 mg PO QDAY #4 tablet 01/06/18 Unknown Rx Beclomethasone Dipropionate [Qvar] 8.7 gm IH BID #1 aer.w.adap 01/06/18 Unknown Rx Prednisone [predniSONE 10 mg 10 mg PO .TAPER #1 tab.ds.pk 01/06/18 Unknown Rx (6-Day Pack, 21 Tabs)] Hyoscyamine Subl [Levsin Sl 0.125 0.125 mg SL Q6HR PRN #14 tab 08/16/20 Unknown Rx TAB] Omeprazole 40 mg PO DAILY #20 capsule. 08/16/20 Unknown Rx Allergies Allergy/AdvReac Type Severity Reaction Status Date / Time No Known Allergies Allergy Unverified 06/23/13 09:07 ED Review of Systems ROS: Stated complaint: ABD PAIN, VOMITING Other details as noted in HPI Comment: All other systems reviewed and negative ED Past Medical Hx - Past Medical History Hx Hypertension: No Hx Congestive Heart Failure: No Hx Diabetes: No Hx Deep Vein Thrombosis: No Hx Pulmonary Embolism: No Hx Renal Disease: No Hx Sickle Cell Disease: No Hx Kidney Stones: No Hx Asthma: Yes Hx COPD: No Hx Tuberculosis: No Hx HIV: No Additional medical history: Bronchitis, PCOS - Surgical History Hx Coronary Stent: No Hx Pacemaker: No Hx Internal Defibrillator: No Hx Appendectomy: Yes - Social History Smoking Status: Current Every Day Smoker - Medications Home Medications: Home Medications Medication Instructions Recorded Confirmed Last Taken Type ALBUTEROL NEB's [Proventil 0.083% 2.5 mg IH Q4H PRN #120 nebu 01/06/18 Unknown Rx NEBS] Albuterol Mdi (or & Nicu Only) 2 puff IH QID PRN #1 inhalation 01/06/18 Unknown Rx [ProAir HFA Inhaler] Azithromycin [Zithromax TAB] 250 mg PO QDAY #4 tablet 01/06/18 Unknown Rx Beclomethasone Dipropionate [Qvar] 8.7 gm IH BID #1 aer.w.adap 01/06/18 Unknown Rx Prednisone [predniSONE 10 mg 10 mg PO .TAPER #1 tab.ds.pk 01/06/18 Unknown Rx (6-Day Pack, 21 Tabs)] Hyoscyamine Subl [Levsin Sl 0.125 0.125 mg SL Q6HR PRN #14 tab 08/16/20 Unknown Rx TAB] Omeprazole 40 mg PO DAILY #20 capsule.dr 08/16/20 Unknown Rx ED Physical Exam - General Limitations: No Limitations General appearance: alert, in no apparent distress - Head Head exam: Present: atraumatic, normocephalic - Eye Eye exam: Present: normal appearance - ENT ENT exam: Present: mucous membranes moist - Neck Neck exam: Present: normal inspection - Respiratory Respiratory exam: Present: normal lung sounds bilaterally. Absent: respiratory distress - Cardiovascular Cardiovascular Exam: Present: regular rate, normal rhythm. Absent: systolic murmur, diastolic murmur, rubs, gallop - GI/Abdominal GI/Abdominal exam: Present: soft, tenderness (To the epigastric and left upper quadrant region with palpation. The abdomen is soft no distention bowel sounds are normal. No organomegaly. No Rovsing, no Beltran Contreras, no Myra sign), normal bowel sounds. Absent: hypoactive bowel sounds, organomegaly, mass, bruit, pulsatile mass - Extremities Exam Extremities exam: Present: normal inspection - Back Exam Back exam: Present: normal inspection. Absent: CVA tenderness (R), CVA tenderness (L) - Neurological Exam Neurological exam: Present: alert, oriented X3, CN II-XII intact, normal gait - Psychiatric Psychiatric exam: Present: normal affect, normal mood. Absent: anxious, flat affect - Skin Skin exam: Present: warm, dry, intact, normal color. Absent: rash ED Course Vital Signs 08/16/20 13:02 Temperature 98.0 F Pulse Rate 85 Respiratory 18 Rate Blood Pressure 129/75 O2 Sat by Pulse 97 Oximetry ED Medical Decision Making - Lab Data Result diagrams: 08/16/20 14:04 08/16/20 14:04 Lab Results 08/16/20 08/16/20 08/16/20 Range/Units 14:04 14:04 14:04 WBC 12.1 H (4.5-11.0) K/mm3 RBC 4.54 (3.65-5.03) M/mm3 Hgb 13.2 (10.1-14.3) gm/dl Hct 39.2 (30.3-42.9) % MCV 86 (79-97) fl MCH 29 (28-32) pg MCHC 34 (30-34) % RDW 14.6 (13.2-15.2) % Plt Count 325 (140-440) K/mm3 Lymph % (Auto) 21.3 (13.4-35.0) % Bailey % (Auto) 3.9 (0.0-7.3) % Eos % (Auto) 3.9 (0.0-4.3) % Baso % (Auto) 0.7 (0.0-1.8) % Lymph # (Auto) 2.6 (1.2-5.4) K/mm3 Bailey # (Auto) 0.5 (0.0-0.8) K/mm3 Eos # (Auto) 0.5 H (0.0-0.4) K/mm3 Baso # (Auto) 0.1 (0.0-0.1) K/mm3 Seg Neutrophils % 70.2 H (40.0-70.0) % Seg Neutrophils # 8.5 H (1.8-7.7) K/mm3 Sodium 139 (137-145) mmol/L Potassium 4.5 (3.6-5.0) mmol/L Chloride 102.9 (98-107) mmol/L Carbon Dioxide 25 (22-30) mmol/L Anion Gap 16 mmol/L BUN 8 (7-17) mg/dL Creatinine 0.5 L (0.6-1.2) mg/dL Estimated GFR > 60 ml/min BUN/Creatinine Ratio 16 % Glucose 106 H (65-100) mg/dL Calcium 9.7 (8.4-10.2) mg/dL Total Bilirubin < 0.20 (0.1-1.2) mg/dL AST 19 (5-40) units/L ALT 22 (7-56) units/L Alkaline Phosphatase 79 (35-129) units/L Total Protein 7.8 (6.3-8.2) g/dL Albumin 4.6 (3.9-5) g/dL Albumin/Globulin Ratio 1.4 % Lipase 25 (13-60) units/L HCG, Quant 0.754 (0-4) mIU/mL Urine Color (Yellow) Urine Turbidity (Clear) Urine pH (5.0-7.0) Ur Specific [place] (1.003-1.030) Urine Protein (Negative) mg/dL Urine Glucose (UA) (Negative) mg/dL Urine Ketones (Negative) mg/dL Urine Blood (Negative) Urine Nitrite (Negative) Urine Bilirubin (Negative) Urine Urobilinogen (<2.0) mg/dL Ur Leukocyte Esterase (Negative) Urine WBC (Auto) (0.0-6.0) /HPF Urine RBC (Auto) (0.0-6.0) /HPF U Epithel Cells (Auto) (0-13.0) /HPF Urine Bacteria (Auto) (Negative) /HPF 08/16/20 Range/Units Unknown WBC (4.5-11.0) K/mm3 RBC (3.65-5.03) M/mm3 Hgb (10.1-14.3) gm/dl Hct (30.3-42.9) % MCV (79-97) fl MCH (28-32) pg MCHC (30-34) % RDW (13.2-15.2) % Plt Count (140-440) K/mm3 Lymph % (Auto) (13.4-35.0) % Bailey % (Auto) (0.0-7.3) % Eos % (Auto) (0.0-4.3) % Baso % (Auto) (0.0-1.8) % Lymph # (Auto) (1.2-5.4) K/mm3 Bailey # (Auto) (0.0-0.8) K/mm3 Eos # (Auto) (0.0-0.4) K/mm3 Baso # (Auto) (0.0-0.1) K/mm3 Seg Neutrophils % (40.0-70.0) % Seg Neutrophils # (1.8-7.7) K/mm3 Sodium (137-145) mmol/L Potassium (3.6-5.0) mmol/L Chloride (98-107) mmol/L Carbon Dioxide (22-30) mmol/L Anion Gap mmol/L BUN (7-17) mg/dL Creatinine (0.6-1.2) mg/dL Estimated GFR ml/min BUN/Creatinine Ratio % Glucose (65-100) mg/dL Calcium (8.4-10.2) mg/dL Total Bilirubin (0.1-1.2) mg/dL AST (5-40) units/L ALT (7-56) units/L Alkaline Phosphatase (35-129) units/L Total Protein (6.3-8.2) g/dL Albumin (3.9-5) g/dL Albumin/Globulin Ratio % Lipase (13-60) units/L HCG, Quant (0-4) mIU/mL Urine Color Straw (Yellow) Urine Turbidity Clear (Clear) Urine pH 6.0 (5.0-7.0) Ur Specific [place] 1.011 (1.003-1.030) Urine Protein <15 mg/dl (Negative) mg/dL Urine Glucose (UA) Neg (Negative) mg/dL Urine Ketones Neg (Negative) mg/dL Urine Blood Neg (Negative) Urine Nitrite Neg (Negative) Urine Bilirubin Neg (Negative) Urine Urobilinogen < 2.0 (<2.0) mg/dL Ur Leukocyte Esterase Neg (Negative) Urine WBC (Auto) 1.0 (0.0-6.0) /HPF Urine RBC (Auto) < 1.0 (0.0-6.0) /HPF U Epithel Cells (Auto) 3.0 (0-13.0) /HPF Urine Bacteria (Auto) 1+ (Negative) /HPF - Radiology Data Radiology results: report reviewed - Medical Decision Making This patient presents with abdominal pain of unclear etiology. Their evaluation has not identified a emergent etiology for the abdominal pain. Specifically, given the very benign exam, normal laboratory studies, and lack of significant risk factors, I have a very low suspicion for appendicitis, ischemic bowel, bowel perforation, or any other life threatening disease. I have discussed with the patient the level of uncertainty with undifferentiated abdominal pain and clearly explained the need to follow-up as noted on the discharge instructions, or return to the Emergency Department immediately if the pain worsens, develops fever, persistent and uncontrollable vomiting, or for any new symptoms or concerns. I discussed with the patient that this presentation today for abdominal pain could represent a significant risk for an acute abdominal process. Although the tests in the ED were essentially normal, there is still a possibility of a process such as appendicitis, diverticulitis, cholecystitis, ulcer, early bowel obstruction, mesenteric ischemia, kidney stone, or even kidney infection which could subsequently cause disability or . The patient understands that they must return within 24 hours for a recheck or see their physician within 24 hours for re-exam due to the possibility of significant surgical or medical process. Reports a significant improvement in her symptoms after receiving the GI cocktail pain and nearly 100% resolved appetite has returned and she requests to be discharged home Critical care attestation.: If time is entered above; I have spent that time in minutes in the direct care of this critically ill patient, excluding procedure time. ED Disposition Clinical Impression: Abdominal pain Disposition: DC-01 TO HOME OR SELFCARE Is pt being admited?: No Does the pt Need Aspirin: No Condition: Stable Instructions: Abdominal Pain (ED), Peptic Ulcer (ED), Gastritis (ED) Prescriptions: Hyoscyamine Subl [Levsin Sl 0.125 TAB] 0.125 mg SL Q6HR PRN #14 tab PRN Reason: abdominal pain Omeprazole 40 mg PO DAILY #20 capsule. Referrals: [facility] [Provider Group] - 3-5 Days
[2020-08-16 14:51] LABS: BUN/Creatinine Ratio 16
== END 2020-08-16 17:28 | disposition home or self-care (01) ==
LOC: ED 12:25
DX: R10.12 Left upper quadrant pain (principal); R10.13 Epigastric pain; J45.909 Unspecified asthma, uncomplicated; F17.200 Nicotine dependence, unspecified, uncomplicated; Z79.899 Other long term (current) drug therapy
CPT/HCPCS: 36415; 80053; 81001; 83690; 84702; 85025; 99283; Q0163

== ENCOUNTER 2020-10-26 18:26 | Inpatient (IN) | payer OTHER ==
[2020-10-26] MEDS ORDERED: IPRATROPIUM 0.02% NEBU 2.5 ML IH ONE ×3 (18:36→20:37)
[2020-10-26] MEDS ORDERED: ALBUTEROL 2.5 MG/3 ML NEBU IH ONE ×3 (18:36→20:36)
[2020-10-26] MEDS ORDERED: dexAMETHasone 20 MG/5 ML VIAL IM ONE (18:36)
--- NOTE | 2020-10-26 18:37 | Event Note ---
ED Screening Note ED Screening Note: asthma, SOB oxygen sat is 90% significant wheezing on exam needs continuous treatment no room available at this time, will do half of continuous treatment in triage exam room charge nurse Sasha aware of pt and looking for room This initial assessment/diagnostic orders/clinical plan/treatment(s) is/are subj ect to change based on patients health status, clinical progression and re- assessment by fellow clinical providers in the ED. Further treatment and workup at subsequent clinical providers discretion. Patient/guardian urged not to elope from the ED as their condition may be serious if not clinically assessed and managed. Initial orders include: neb tx, steroids, cxr
[2020-10-26] MEDS ORDERED: MAGNESIUM SULFATE 2 GM/50 ML BAG IV ONE (18:38)
[2020-10-26] MEDS ORDERED: dexAMETHasone 20 MG/5 ML VIAL IV ONE (18:38)
--- NOTE | 2020-10-26 19:10 | XRay Report ---
CHEST 2 VIEWS INDICATION / CLINICAL INFORMATION: SOB. COMPARISON: 01/03/2018 FINDINGS: SUPPORT DEVICES: None. HEART / MEDIASTINUM: No significant abnormality. LUNGS / PLEURA: No significant pulmonary or pleural abnormality. No pneumothorax. ADDITIONAL FINDINGS: No significant additional findings. IMPRESSION: 1. No acute findings. Signer Name: Timmy Mensah MD Signed: 10/26/2020 7:05 PM Workstation Name: [id number]
[2020-10-26] MEDS ORDERED: ONDANSETRON 4 MG/2 ML INJ ONE (20:06)
[2020-10-26] MEDS ORDERED: ONDANSETRON 4 MG/2 ML INJ IV ONE (20:17)
--- NOTE | 2020-10-26 20:42 | Emergency Department Report ---
ED Asthma HPI - General Chief Complaint: Adult Asthma Stated Complaint: CHEST DISCOMFORT COVID + Time Seen by Provider: 10/26/20 18:36 Source: patient Mode of arrival: Ambulatory Limitations: No Limitations - History of Present Illness Initial Comments: 25-year-old female the past medical history of asthma presents to the hospital with wheezing and shortness of breath x2 weeks. Patient also have a cough productive of sputum that is thick and green with chunks at times and white at other times. Patient did have several episodes of blood-tinged sputum yesterday doing severe coughing spells that has since improved. Patient having a T-max of 100 three days ago. She has lost sense of taste or smell. She recently tested positive for coronavirus aprox 10 days ago. No previous hx of intubations - Related Data Previous Rx's Medication Instructions Recorded Last Taken Type ALBUTEROL NEB's [Proventil 0.083% 2.5 mg IH Q4H PRN #120 nebu 01/06/18 Unknown Rx NEBS] Albuterol Mdi (or & Nicu Only) 2 puff IH QID PRN #1 inhalation 01/06/18 Unknown Rx [ProAir HFA Inhaler] Azithromycin [Zithromax TAB] 250 mg PO QDAY #4 tablet 01/06/18 Unknown Rx Beclomethasone Dipropionate [Qvar] 8.7 gm IH BID #1 aer.w.adap 01/06/18 Unknown Rx Prednisone [predniSONE 10 mg 10 mg PO .TAPER #1 tab.ds.pk 01/06/18 Unknown Rx (6-Day Pack, 21 Tabs)] Hyoscyamine Subl [Levsin Sl 0.125 0.125 mg SL Q6HR PRN #14 tab 08/16/20 Unknown Rx TAB] Omeprazole 40 mg PO DAILY #20 capsule. 08/16/20 Unknown Rx Allergies Allergy/AdvReac Type Severity Reaction Status Date / Time No Known Allergies Allergy Unverified 06/23/13 09:07 ED Review of Systems ROS: Stated complaint: CHEST DISCOMFORT COVID + Other details as noted in HPI Comment: All other systems reviewed and negative ED Past Medical Hx - Past Medical History Hx Hypertension: No Hx Congestive Heart Failure: No Hx Diabetes: No Hx Deep Vein Thrombosis: No Hx Pulmonary Embolism: No Hx Renal Disease: No Hx Sickle Cell Disease: No Hx Kidney Stones: No Hx Asthma: Yes Hx COPD: No Hx Tuberculosis: No Hx HIV: No Additional medical history: Bronchitis, PCOS - Surgical History Hx Coronary Stent: No Hx Pacemaker: No Hx Internal Defibrillator: No Hx Appendectomy: Yes - Social History Smoking Status: Never Smoker - Medications Home Medications: Home Medications Medication Instructions Recorded Confirmed Last Taken Type ALBUTEROL NEB's [Proventil 0.083% 2.5 mg IH Q4H PRN #120 nebu 01/06/18 Unknown Rx NEBS] Albuterol Mdi (or & Nicu Only) 2 puff IH QID PRN #1 inhalation 01/06/18 Unknown Rx [ProAir HFA Inhaler] Azithromycin [Zithromax TAB] 250 mg PO QDAY #4 tablet 01/06/18 Unknown Rx Beclomethasone Dipropionate [Qvar] 8.7 gm IH BID #1 aer.w.adap 01/06/18 Unknown Rx Prednisone [predniSONE 10 mg 10 mg PO .TAPER #1 tab.ds.pk 01/06/18 Unknown Rx (6-Day Pack, 21 Tabs)] Hyoscyamine Subl [Levsin Sl 0.125 0.125 mg SL Q6HR PRN #14 tab 08/16/20 Unknown Rx TAB] Omeprazole 40 mg PO DAILY #20 capsule. 08/16/20 Unknown Rx ED Physical Exam - General Limitations: No Limitations - Other Other exam information: General: No acute distress Head: Atraumatic Eyes: normal appearance ENT: Moist mucous membranes Neck: Normal appearance, no midline tenderness Chest: Wheezing, mild tachypnea CV: Tachycardia regular rate Abdomen: Soft, normal bowel sounds, nontender, nondistended, no rebound or guarding Back: Normal inspection Extremity: Normal inspection, full range of motion Neuro: Alert O x 3, no facial asymmetry, speech clear, no gross motor sensory deficit Psych: Appropriate behavior Skin: No rash ED Course Vital Signs 10/26/20 10/26/20 10/26/20 18:31 19:36 20:15 Temperature 98.1 F Pulse Rate 117 H Pulse Rate [ 102 H Bilateral] Respiratory 28 H Rate Respiratory 24 Rate [Bilateral ] Blood Pressure 110/89 Blood Pressure [Left] O2 Sat by Pulse 92 93 Oximetry 10/26/20 10/26/20 10/26/20 21:24 21:48 22:22 Temperature Pulse Rate 93 H 110 H Pulse Rate [ 92 H Bilateral] Respiratory 18 18 Rate Respiratory 24 Rate [Bilateral ] Blood Pressure Blood Pressure 119/60 [Left] O2 Sat by Pulse 100 97 Oximetry - Reevaluation(s) Reevaluation #1: 10/26/20 20:45 Patient has persistent hypoxia, wheezing, shortness of breath. Supplemental oxygen ordered with additional neb treatment. Labs ordered with plan to admit 10/27/20 00:12 pt reports feeling better. still has residual wheezing but breathing improved. ED Medical Decision Making - Lab Data Result diagrams: 10/26/20 21:00 10/26/20 21:00 Lab Results 10/26/20 10/26/20 10/26/20 Range/Units 21:00 21:00 21:00 WBC (4.5-11.0) K/mm3 RBC (3.65-5.03) M/mm3 Hgb (10.1-14.3) gm/dl Hct (30.3-42.9) % MCV (79-97) fl MCH (28-32) pg MCHC (30-34) % RDW (13.2-15.2) % Plt Count (140-440) K/mm3 Lymph % (Auto) (13.4-35.0) % [place] % (Auto) (0.0-7.3) % Eos % (Auto) (0.0-4.3) % Baso % (Auto) (0.0-1.8) % Lymph # (Auto) (1.2-5.4) K/mm3 [place] # (Auto) (0.0-0.8) K/mm3 Eos # (Auto) (0.0-0.4) K/mm3 Baso # (Auto) (0.0-0.1) K/mm3 Seg Neutrophils % (40.0-70.0) % Seg Neutrophils # (1.8-7.7) K/mm3 D-Dimer 560.32 H (0-234) ng/mlDDU Sodium (137-145) mmol/L Potassium (3.6-5.0) mmol/L Chloride (98-107) mmol/L Carbon Dioxide (22-30) mmol/L Anion Gap mmol/L BUN (7-17) mg/dL Creatinine (0.6-1.2) mg/dL Estimated GFR ml/min BUN/Creatinine Ratio % Glucose 112 H (65-100) mg/dL Calcium (8.4-10.2) mg/dL Ferritin 38.7 (10.0-200.0) ng/mL Lactate Dehydrogenase 256 H (91-180) units/L C-Reactive Protein 1.20 (0.00-1.30) mg/dL HCG, Qual (Negative) 10/26/20 10/26/20 10/26/20 Range/Units 21:00 21:00 21:00 WBC 14.8 H (4.5-11.0) K/mm3 RBC 4.83 (3.65-5.03) M/mm3 Hgb 13.9 (10.1-14.3) gm/dl Hct 40.9 (30.3-42.9) % MCV 85 (79-97) fl MCH 29 (28-32) pg MCHC 34 (30-34) % RDW 15.2 (13.2-15.2) % Plt Count 347 (140-440) K/mm3 Lymph % (Auto) 21.3 (13.4-35.0) % [place] % (Auto) 4.8 (0.0-7.3) % Eos % (Auto) 6.9 H (0.0-4.3) % Baso % (Auto) 0.7 (0.0-1.8) % Lymph # (Auto) 3.2 (1.2-5.4) K/mm3 [place] # (Auto) 0.7 (0.0-0.8) K/mm3 Eos # (Auto) 1.0 H (0.0-0.4) K/mm3 Baso # (Auto) 0.1 (0.0-0.1) K/mm3 Seg Neutrophils % 66.3 (40.0-70.0) % Seg Neutrophils # 9.8 H (1.8-7.7) K/mm3 D-Dimer (0-234) ng/mlDDU Sodium 140 (137-145) mmol/L Potassium 3.7 (3.6-5.0) mmol/L Chloride 102.3 (98-107) mmol/L Carbon Dioxide 28 (22-30) mmol/L Anion Gap 13 mmol/L BUN 8 (7-17) mg/dL Creatinine 0.7 (0.6-1.2) mg/dL Estimated GFR > 60 ml/min BUN/Creatinine Ratio 11 % Glucose 107 H (65-100) mg/dL Calcium 9.5 (8.4-10.2) mg/dL Ferritin (10.0-200.0) ng/mL Lactate Dehydrogenase (91-180) units/L C-Reactive Protein (0.00-1.30) mg/dL HCG, Qual Negative (Negative) - Radiology Data Radiology results: report reviewed Chest x-ray: No acute finding ct angio chest: no Pulmonary embolism. Mild small groundglass opacities are present throughout both lower lobes with appearance consistent with multifocal viral pneumonia - Medical Decision Making 25-year-old female presents with status asthmaticus with persistent wheezing and shortness of breath and mild hypoxia. Patient reports a recent positive Covid test as an outpatient CT angiogram chest reveals no pulmonary embolism but bilateral groundglass opacities consistent for multifocal pneumonia. Patient initially treated with Decadron and bronchodilators. Patient treated for atypical pneumonia with Rocephin azithromycin. Supplemental oxygen provided. Hospitalist to admit. Critical Care Time: Yes Critical care time in (mins) excluding proc time.: 35 Critical care attestation.: If time is entered above; I have spent that time in minutes in the direct care of this critically ill patient, excluding procedure time. ED Disposition Clinical Impression: Low oxygen saturation, COVID-19, Acute asthmatic bronchitis, Multifocal pneumonia Disposition: OP ADMIT IP TO THIS HOSP Is pt being admited?: Yes Condition: Stable Instructions: Acute Bronchitis (ED), Bacterial Pneumonia (ED) Referrals: PRIMARY CARE, [Primary Care Provider] - 3-5 Days Time of Disposition: 00:04 ([facility])
[2020-10-26 21:07] LABS: Basophils # (Auto) 0.1 K/mm3 (0.0-0.1); Basophils % (Auto) 0.7 % (0.0-1.8); Eosinophils % (Auto) 6.9 % (0.0-4.3); Hematocrit 40.9 % (30.3-42.9); Hemoglobin 13.9 gm/dl (10.1-14.3); Lymphocytes # (Auto) 3.2 K/mm3 (1.2-5.4); Lymphocytes % (Auto) 21.3 % (13.4-35.0); Mean Corpuscular HGB Conc 34 % (30-34); Mean Corpuscular Volume 85 fl (79-97); Monocytes # (Auto) 0.7 K/mm3 (0.0-0.8); Monocytes % (Auto) 4.8 % (0.0-7.3); Platelet Count 347 K/mm3 (140-440); Red Blood Count 4.83 M/mm3 (3.65-5.03); Red Cell Distribution Width 15.2 % (13.2-15.2)
[2020-10-26 21:22] LABS: C-Reactive Protein 1.2 mg/dL (0.00-1.30)
[2020-10-26 21:29] LABS: Blood Urea Nitrogen 8 mg/dL (7-17); Calcium 9.5 mg/dL (8.4-10.2); Hemolysis Index 5
[2020-10-26 21:38] LABS: BUN/Creatinine Ratio 11
--- NOTE | 2020-10-26 23:26 | Cat Scan Report ---
CTA CHEST WITH IV CONTRAST INDICATION / CLINICAL INFORMATION: sob, asthma, elevated ddimer, covid +. TECHNIQUE: Axial CT images were obtained through the chest after injection of 100 cc IV contrast. 3 plane MIP an d/or 3D reconstructions were produced. All CT scans at this location are performed using CT dose redu ction for [facility] by means of automated exposure control. COMPARISON: Chest radiograph 10/26/2020 FINDINGS: PULMONARY ARTERIES: No pulmonary emboli. THORACIC AORTA: No significant abnormality. HEART: No significant abnormality. CORONARY ARTERIES: No significant calcification. PLEURA: No pleural effusion. No pneumothorax. LYMPH NODES: No significant adenopathy. LUNGS: Small groundglass opacities are seen throughout both lower lobes in a pattern consistent with viral pneumonia. The upper lobes are relatively spared. ADDITIONAL FINDINGS: Incidental note is made of a left SVC. UPPER ABDOMEN: Multiple benign-appearing small masses are seen in the left upper quadrant adjacent to a small spleen. These findings are consistent with splenosis/and or accessory spleens. SKELETAL STRUCTURES: No significant osseous abnormality. IMPRESSION: 1. No CT evidence for pulmonary embolism. 2. Mild small groundglass opacities are present throughout both lower lobes with appearance consisten t with multifocal viral pneumonia. Signer Name: Kelly Patel MD Signed: 10/26/2020 11:22 PM Workstation Name: [id number]
[2020-10-26] MEDS ORDERED: AZITHROMYCIN/NS 500 MG/250 ML 500 MG/250 ML BAG IV ONE (23:45)
[2020-10-26] MEDS ORDERED: cefTRIAXone/NS 2 GM/100 ML 2 GM/100 ML BAG IV ONE (23:45)
[2020-10-27] MEDS ORDERED: ONDANSETRON 4 MG/2 ML INJ IV PRN (00:07)
[2020-10-27] MEDS ORDERED: ALBUTEROL 2.5 MG/3 ML NEBU IH PRN (00:07)
[2020-10-27] MEDS ORDERED: ACETAMINOPHEN 325 MG TAB PO PRN (00:07)
--- NOTE | 2020-10-27 00:42 | History and Physical Report ---
History of Present Illness Date of examination: 10/27/20 Date of admission: 10/27/2020 Chief complaint: SIB, wheezing History of present illness: 25-year-old female with history of asthma/bronchitis who presents to [facility] ED with complaints of cough, wheezing and shortness of breath x2 weeks. Patient states she has had intermittent productive cough with thick greenish sputum accompanied with subjective fevers with TMAX 100 x3 days. On 10/21 she decided to get tested for Covid 19 virus at the [place] testing site. She received an email 1-2 days later stating that her results were positive for COVID 10 virus. Her fevers resolved approximately 2 to 3 days ago. However she complains of wheezing and shortness of breath that is worse with exertion and at nights. At time she has been awakened from sleep gasping for air. Endorses chest tightness, nausea, vomiting, diarrhea, loss of taste, loss of smell, and myalgias. Denies: headache, sore throat, chest pain, abdominal pain, or constipation Past History Past Medical History: other (Asthma, bronchitis, PCOS) Past Surgical History: appendectomy Social history: single, full code, other (Lives with boyfriend). denies: smoking, alcohol abuse, prescription drug abuse, IV drug use Family history: no significant family history Medications and Allergies Allergies Allergy/AdvReac Type Severity Reaction Status Date / Time No Known Allergies Allergy Unverified 06/23/13 09:07 Home Medications Medication Instructions Recorded Confirmed Last Taken Type ALBUTEROL NEB's [Proventil 0.083% 2.5 mg IH Q4H PRN #120 nebu 01/06/18 Unknown Rx NEBS] Albuterol Mdi (or & Nicu Only) 2 puff IH QID PRN #1 inhalation 01/06/18 Unknown Rx [ProAir HFA Inhaler] Azithromycin [Zithromax TAB] 250 mg PO QDAY #4 tablet 01/06/18 Unknown Rx Beclomethasone Dipropionate [Qvar] 8.7 gm IH BID #1 aer.w.adap 01/06/18 Unknown Rx Prednisone [predniSONE 10 mg 10 mg PO .TAPER #1 tab.ds.pk 01/06/18 Unknown Rx (6-Day Pack, 21 Tabs)] Hyoscyamine Subl [Levsin Sl 0.125 0.125 mg SL Q6HR PRN #14 tab 08/16/20 Unknown Rx TAB] Omeprazole 40 mg PO DAILY #20 capsule. 08/16/20 Unknown Rx Active Meds: Active Medications Acetaminophen (Acetaminophen 325 Mg Tab) 650 mg PO Q4H PRN PRN Reason: Pain MILD(1-3)/Fever >100.5/RANGEL Albuterol (Albuterol 2.5 Mg/3 Ml Nebu) 2.5 mg IH Q3HRT PRN PRN Reason: Shortness Of Breath Albuterol/Ipratropium (Ipratropium/Albuterol Sulfate 3 Ml Ampul.Neb) 1 ampul IH Q6HRT GLORIA Budesonide (Budesonide 0.5 Mg/2 Ml Nebu) 0.5 mg IH Q12HRT GLORIA Dexamethasone (Dexamethasone 4 Mg/Ml Vial) 6 mg IV Q24HR GLOIRA Docusate Sodium (Docusate Sodium 100 Mg Cap) 100 mg PO BID GLORIA Enoxaparin Sodium (Enoxaparin 40 Mg/0.4 Ml Inj) 40 mg SUB-Q QDAY GLORIA Guaifenesin (Guaifenesin Er 600 Mg Tab) 600 mg PO BID GLORIA Azithromycin (Zithromax/Ns) 500 mg in 250 mls @ 250 mls/hr IV ONCE ONE; Protocol Stop: 10/27/20 00:44 Azithromycin 500 mg/ Sodium (Chloride) 250 mls @ 250 mls/hr IV Q24H GLORIA; Protocol Ceftriaxone Sodium (Rocephin/Ns 1 Gm/50 Ml) 1 gm in 50 mls @ 100 mls/hr IV Q24H GLORIA; Protocol Miscellaneous Medication (Omeprazole [Omeprazole]) 40 mg PO DAILY GLORIA Ondansetron HCl (Ondansetron 4 Mg/2 Ml Inj) 4 mg IV Q6H PRN PRN Reason: Nausea And Vomiting Sodium Chloride (Sodium Chloride 0.9% 10 Ml Flush Syringe) 10 ml IV BID GLORIA Sodium Chloride (Sodium Chloride 0.9% 10 Ml Flush Syringe) 10 ml IV PRN PRN PRN Reason: LINE FLUSH Review of Systems All systems: negative (As noted in HPI) Exam - Physical Exam Narrative exam: Physical exam General appearance: Present: No acute distress, alert and oriented 3 - [place] young adult female - EENT Eyes: Present: PERRL, EOM intact ENT: hearing intact, normal dentition - Neck Neck: Present: supple, normal ROM - Respiratory Respiratory effort: Non-labored Respiratory: Scattered wheezing throughout - Cardiovascular Heart rate: 110 (bpm) Rhythm: Sinus tachycardia Heart Sounds: Present: S1 & S2. Absent: rub, click - Extremities Extremities: no ischemia, pulses intact, - Peripheral Assessment Peripheral Pulses: within normal limits - Abdominal General gastrointestinal: soft, non-tender, normal bowel sounds - Integumentary Integumentary: Present: warm, dry - Musculoskeletal Musculoskeletal: Able to move all extremities -Neurological Neurological: CN II-XII intact - Psychiatric Psychiatric: Appropriate for situation ,cooperative - Constitutional Vitals: Temp Pulse Resp BP Pulse Ox 98.1 F 110 H 18 119/60 97 10/26/20 18:31 10/26/20 22:22 10/26/20 22:22 10/26/20 22:22 10/26/20 22:22 Results - Labs CBC & Chem 7: 10/26/20 21:00 10/26/20 21:00 Labs: Laboratory Last Values WBC 14.8 K/mm3 (4.5-11.0) H 10/26/20 21:00 RBC 4.83 M/mm3 (3.65-5.03) 10/26/20 21:00 Hgb 13.9 gm/dl (10.1-14.3) 10/26/20 21:00 Hct 40.9 % (30.3-42.9) 10/26/20 21:00 MCV 85 fl (79-97) 10/26/20 21:00 MCH 29 pg (28-32) 10/26/20 21:00 MCHC 34 % (30-34) 10/26/20 21:00 RDW 15.2 % (13.2-15.2) 10/26/20 21:00 Plt Count 347 K/mm3 (140-440) 10/26/20 21:00 Lymph % (Auto) 21.3 % (13.4-35.0) 10/26/20 21:00 [place] % (Auto) 4.8 % (0.0-7.3) 10/26/20 21:00 Eos % (Auto) 6.9 % (0.0-4.3) H 10/26/20 21:00 Baso % (Auto) 0.7 % (0.0-1.8) 10/26/20 21:00 Lymph # (Auto) 3.2 K/mm3 (1.2-5.4) 10/26/20 21:00 [place] # (Auto) 0.7 K/mm3 (0.0-0.8) 10/26/20 21:00 Eos # (Auto) 1.0 K/mm3 (0.0-0.4) H 10/26/20 21:00 Baso # (Auto) 0.1 K/mm3 (0.0-0.1) 10/26/20 21:00 Seg Neutrophils % 66.3 % (40.0-70.0) 10/26/20 21:00 Seg Neutrophils # 9.8 K/mm3 (1.8-7.7) H 10/26/20 21:00 D-Dimer 560.32 ng/mlDDU (0-234) H 10/26/20 21:00 Sodium 140 mmol/L (137-145) 10/26/20 21:00 Potassium 3.7 mmol/L (3.6-5.0) 10/26/20 21:00 Chloride 102.3 mmol/L (98-107) 10/26/20 21:00 Carbon Dioxide 28 mmol/L (22-30) 10/26/20 21:00 Anion Gap 13 mmol/L 10/26/20 21:00 BUN 8 mg/dL (7-17) 10/26/20 21:00 Creatinine 0.7 mg/dL (0.6-1.2) 10/26/20 21:00 Estimated GFR > 60 ml/min 10/26/20 21:00 BUN/Creatinine Ratio 11 % 10/26/20 21:00 Glucose 107 mg/dL (65-100) H 10/26/20 21:00 Glucose 112 mg/dL (65-100) H 10/26/20 21:00 Calcium 9.5 mg/dL (8.4-10.2) 10/26/20 21:00 Ferritin 38.7 ng/mL (10.0-200.0) 10/26/20 21:00 Lactate Dehydrogenase 256 units/L (91-180) H 10/26/20 21:00 C-Reactive Protein 1.20 mg/dL (0.00-1.30) 10/26/20 21:00 HCG, Qual Negative (Negative) 10/26/20 21:00 - Diagnostic Impressions Diagnostic Impressions: CT Chest: IMPRESSION: 1. No CT evidence for pulmonary embolism. 2. Mild small groundglass opacities are present throughout both lower lobes with appearance consistent with multifocal viral pneumonia. CXR: IMPRESSION: 1. No acute findings. Maharaj/IV: IV Catheter Type [Right Medial Peripheral IV Port Antecubital] Assessment and Plan Assessment and plan: 25-year-old female with history of asthma/bronchitis who presents to [facility] ED with complaints of cough, wheezing and shortness of breath x2 weeks. 1. COVID-19 virus infection -Tested positive for COVID-19 on 10/21/2020 had out patient testing site -Repeat testing pending -Follow-up on lab -Start IV Decadron -ID consult pending -Isolate initiate RACHELE precautions -Supportive care 2. Pneumonia -Due to #1 -CT Chest shows small groundglass opacities are present throughout both lower lobes -Leukocytosis at 14.8 -Blood Cultures pending -Start on IV Abx 3. Acute respiratory failure -Due to #1 -No Baseline home oxygen requirements -Currently on supplemental -Monitor saturations -Continue supplemental oxygen wean as tolerated 4. Acute Exacerbation Asthma with bronchitis -CXR unrevealing -Continue supportive care -Scheduled Duo Nebs , albuterol when necessary -IV steroids -Mucinex -Start IV abx 5. Elevated D-dimer -@560.32 -CT chest negative for PE -On subcu DVT PPx Lovenox Advance Directives: No VTE prophylaxis?: Chemical, Mechanical Plan of care discussed with patient/family: Yes
[2020-10-27] MEDS: IPRATROPIUM/ALBUTEROL SULFATE 3 ML AMPUL.NEB IH SCH ×5 (03:59→19:14)
[2020-10-27] MEDS: BUDESONIDE 0.5 MG/2 ML NEBU IH SCH ×3 (07:58→19:14)
[2020-10-27] MEDS ORDERED: cefTRIAXone/NS 1 GM/50 ML 1 GM/50 ML BAG IV SCH (10:00)
[2020-10-27] MEDS ORDERED: AZITHROMYCIN 500 MG in SODIUM CHLORIDE 0.9% 250ML 250 ML IV SCH (10:00)
--- NOTE | 2020-10-27 10:16 | Progress Note ---
Assessment and Plan Assessment and plan: 25-year-old female with history of asthma/bronchitis who presents to [facility] ED with complaints of cough, wheezing and shortness of breath x2 weeks. --COVID-19 virus infection COVID-19 positive test on 10/21/2020 [outpatient] Repeat awad PCR pending Contact and droplet isolation Follow inflammatory markers ID evaluation, Steroids, remdesivir per protocol Home oxygen evaluation at discharge --Acute hypoxic respiratory failure; Due to acute exacerbation of bronchial asthma As well as COVID-19 pneumonia Oxygen titrate O2 sats to more than 90% Home O2 evaluation --COVID-19 pneumonia; Empiric antibiotics Procalcitonin levels low Follow cultures, follow ID recommendations --Elevated D-dimer CT chest negative for PE Bilateral lower extremity venous Doppler To rule out DVT --Morbid obesity; BMI 39.9 Patient needs Diet modification exercise as tolerated and weight reduction when medically stable --DVT prophylaxis; Lovenox --Full CODE STATUS Closely monitor the patient and adjust management as needed Plan of care reviewed with the patient and her nurse Patient verbalized understanding of her illness and treatment Advance care 35 minutes History Interval history: I have seen and examined the patient at the bedside Isolation precautions, PPE protocols strictly followed Patient admitted with acute exacerbation of bronchial asthma As well as positive Covid 19 status Patient feels slightly better Still complains of some wheeze and shortness of breath Vital signs reviewed Hospitalist Physical - Constitutional Vitals: Temp Pulse Resp BP Pulse Ox 98.7 F 74 16 112/65 94 10/27/20 05:32 10/27/20 07:59 10/27/20 07:59 10/27/20 05:32 10/27/20 08:00 General appearance: Present: mild distress, well-nourished, obese - EENT Eyes: Present: PERRL, EOM intact - Neck Neck: Present: supple, normal ROM - Respiratory Respiratory effort: normal Respiratory: bilateral: diminished, wheezing, negative: rales, rhonchi - Cardiovascular Rhythm: regular Heart Sounds: Present: S1 & S2 - Extremities Extremities: no ischemia, No edema - Abdominal General gastrointestinal: soft, non-tender, non-distended, normal bowel sounds - Integumentary Integumentary: Present: clear, warm - Psychiatric Psychiatric: appropriate mood/affect, cooperative - Neurologic Neurologic: moves all extremities Results - Labs CBC & Chem 7: 10/26/20 21:00 10/26/20 21:00 Labs: Laboratory Last Values WBC 14.8 K/mm3 (4.5-11.0) H 10/26/20 21:00 RBC 4.83 M/mm3 (3.65-5.03) 10/26/20 21:00 Hgb 13.9 gm/dl (10.1-14.3) 10/26/20 21:00 Hct 40.9 % (30.3-42.9) 10/26/20 21:00 MCV 85 fl (79-97) 10/26/20 21:00 MCH 29 pg (28-32) 10/26/20 21:00 MCHC 34 % (30-34) 10/26/20 21:00 RDW 15.2 % (13.2-15.2) 10/26/20 21:00 Plt Count 347 K/mm3 (140-440) 10/26/20 21:00 Lymph % (Auto) 21.3 % (13.4-35.0) 10/26/20 21:00 [place] % (Auto) 4.8 % (0.0-7.3) 10/26/20 21:00 Eos % (Auto) 6.9 % (0.0-4.3) H 10/26/20 21:00 Baso % (Auto) 0.7 % (0.0-1.8) 10/26/20 21:00 Lymph # (Auto) 3.2 K/mm3 (1.2-5.4) 10/26/20 21:00 [place] # (Auto) 0.7 K/mm3 (0.0-0.8) 10/26/20 21:00 Eos # (Auto) 1.0 K/mm3 (0.0-0.4) H 10/26/20 21:00 Baso # (Auto) 0.1 K/mm3 (0.0-0.1) 10/26/20 21:00 Seg Neutrophils % 66.3 % (40.0-70.0) 10/26/20 21:00 Seg Neutrophils # 9.8 K/mm3 (1.8-7.7) H 10/26/20 21:00 D-Dimer 560.32 ng/mlDDU (0-234) H 10/26/20 21:00 Sodium 140 mmol/L (137-145) 10/26/20 21:00 Potassium 3.7 mmol/L (3.6-5.0) 10/26/20 21:00 Chloride 102.3 mmol/L (98-107) 10/26/20 21:00 Carbon Dioxide 28 mmol/L (22-30) 10/26/20 21:00 Anion Gap 13 mmol/L 10/26/20 21:00 BUN 8 mg/dL (7-17) 10/26/20 21:00 Creatinine 0.7 mg/dL (0.6-1.2) 10/26/20 21:00 Estimated GFR > 60 ml/min 10/26/20 21:00 BUN/Creatinine Ratio 11 % 10/26/20 21:00 Glucose 107 mg/dL (65-100) H 10/26/20 21:00 Glucose 112 mg/dL (65-100) H 10/26/20 21:00 Calcium 9.5 mg/dL (8.4-10.2) 10/26/20 21:00 Ferritin 38.7 ng/mL (10.0-200.0) 10/26/20 21:00 Lactate Dehydrogenase 256 units/L (91-180) H 10/26/20 21:00 C-Reactive Protein 1.20 mg/dL (0.00-1.30) 10/26/20 21:00 HCG, Qual Negative (Negative) 10/26/20 21:00 Microbiology: Microbiology 10/27/20 00:19 Peripheral/Venous Blood Culture - Preliminary Culture in Progress 10/27/20 00:46 Peripheral/Venous Blood Culture - Preliminary Culture in Progress Maharaj/IV: Voiding Method Toilet IV Catheter Type [Right INT / Saline Lock Antecubital] IV Catheter Type [Right Medial Peripheral IV Port Antecubital] Active Medications - Current Medications Current Medications: Generic Name Dose Route Start Last Admin Trade Name Freq PRN Reason Stop Dose Admin Acetaminophen 650 mg 10/27/20 00:07 Acetaminophen 325 Mg Tab PO Q4H PRN Pain MILD(1-3)/Fever >100.5/RANGEL Albuterol 2.5 mg 10/27/20 00:07 Albuterol 2.5 Mg/3 Ml Nebu IH Q3HRT PRN Shortness Of Breath Albuterol/Ipratropium 1 ampul 10/27/20 02:00 10/27/20 07:58 Ipratropium/Albuterol Sulfate 3 Ml Ampul.Neb IH 1 ampul Q6HRT [facility] Administration Azithromycin 500 mg 10/27/20 22:00 Azithromycin 250 Mg Tab PO 10/30/20 22:01 QHS GLORIA Budesonide 0.5 mg 10/27/20 08:00 10/27/20 07:58 Budesonide 0.5 Mg/2 Ml Nebu IH 0.5 mg Q12HRT GLORIA Administration Dexamethasone 6 mg 10/27/20 10:00 Dexamethasone 4 Mg/Ml Vial IV 11/04/20 10:01 Q24HR [facility] Docusate Sodium 100 mg 10/27/20 10:00 Docusate Sodium 100 Mg Cap PO BID [facility] Enoxaparin Sodium 40 mg 10/27/20 10:00 Enoxaparin 40 Mg/0.4 Ml Inj SUB-Q QDAY [facility] Guaifenesin 600 mg 10/27/20 10:00 Guaifenesin Er 600 Mg Tab PO BID [facility] Ceftriaxone Sodium 2 gm in 100 mls @ 200 mls/hr 10/27/20 22:00 Rocephin/Ns 2 Gm/100 Ml IV Q24HR@2200 [facility] Ondansetron HCl 4 mg 10/27/20 00:07 10/27/20 01:08 Ondansetron 4 Mg/2 Ml Inj IV 4 mg Q6H PRN Administration Nausea And Vomiting Pantoprazole Sodium 40 mg 10/27/20 10:00 Pantoprazole 40 Mg Tab PO DAILY [facility] Sodium Chloride 10 ml 10/27/20 10:00 Sodium Chloride 0.9% 10 Ml Flush Syringe IV BID [facility] Sodium Chloride 10 ml 10/27/20 00:07 Sodium Chloride 0.9% 10 Ml Flush Syringe IV PRN PRN LINE FLUSH
[2020-10-27] MEDS: guaiFENesin ER 600 MG TAB PO SCH ×2 (10:33→21:41)
[2020-10-27] MEDS: DOCUSATE SODIUM 100 MG CAP PO SCH ×2 (10:34→21:41)
[2020-10-27] MEDS: dexAMETHasone 4 MG/ML VIAL IV SCH (10:34)
[2020-10-27] MEDS: PANTOPRAZOLE 40 MG TAB PO SCH (10:34)
[2020-10-27] MEDS: ENOXAPARIN 40 MG/0.4 ML INJ SUB-Q SCH (10:34)
--- NOTE | 2020-10-27 16:00 | Consultation ---
History of Present Illness - Reason for Consult Consult date: 10/27/20 - History of Present Illness 25-year-old female past medical history asthma brought to the hospital complaining of cough, wheezing, shortness of breath. Began approximately 2 weeks prior to admission, and she complains of associated productive cough. She also notes temperatures up to 100. She tested positive for COVID-19 on 10/21/2020. She notes her fevers have resolved, however her shortness of breath is ongoing. She also complains of typical Covid symptoms. Afebrile with a white count of 14.8. Normal renal function normal procalcitonin. Blood cultures currently pending. Covid testing pending. Currently on ceftriaxone and azithromycin. Also on dexamethasone. Imaging personally reviewed: Chest CTA: No PE, positive for groundglass opacities bilaterally consistent with COVID-19 Review of systems: Deferred due to PPE conservation strategy. Past History Past Medical History: other (Asthma, bronchitis, PCOS) Past Surgical History: appendectomy Social history: single, full code, other (Lives with boyfriend). denies: smoking, alcohol abuse, prescription drug abuse, IV drug use Family history: no significant family history Medications and Allergies Allergies Allergy/AdvReac Type Severity Reaction Status Date / Time No Known Allergies Allergy Unverified 06/23/13 09:07 Home Medications Medication Instructions Recorded Confirmed Last Taken Type ALBUTEROL NEB's [Proventil 0.083% 2.5 mg IH Q4H PRN #120 nebu 01/06/18 Unknown Rx NEBS] Albuterol Mdi (or & Nicu Only) 2 puff IH QID PRN #1 inhalation 01/06/18 Unknown Rx [ProAir HFA Inhaler] Azithromycin [Zithromax TAB] 250 mg PO QDAY #4 tablet 01/06/18 Unknown Rx Beclomethasone Dipropionate [Qvar] 8.7 gm IH BID #1 aer.w.adap 01/06/18 Unknown Rx Prednisone [predniSONE 10 mg 10 mg PO .TAPER #1 tab.ds.pk 01/06/18 Unknown Rx (6-Day Pack, 21 Tabs)] Hyoscyamine Subl [Levsin Sl 0.125 0.125 mg SL Q6HR PRN #14 tab 08/16/20 Unknown Rx TAB] Omeprazole 40 mg PO DAILY #20 capsule. 08/16/20 Unknown Rx Active Meds: Active Medications Acetaminophen (Acetaminophen 325 Mg Tab) 650 mg PO Q4H PRN PRN Reason: Pain MILD(1-3)/Fever >100.5/RANGEL Last Admin: 10/27/20 10:33 Dose: 650 mg Documented by: Albuterol (Albuterol 2.5 Mg/3 Ml Nebu) 2.5 mg IH Q3HRT PRN PRN Reason: Shortness Of Breath Albuterol/Ipratropium (Ipratropium/Albuterol Sulfate 3 Ml Ampul.Neb) 1 ampul IH Q6HRT [facility] Last Admin: 10/27/20 14:19 Dose: 1 ampul Documented by: Azithromycin (Azithromycin 250 Mg Tab) 500 mg PO QHS [facility] Stop: 10/30/20 22:01 Budesonide (Budesonide 0.5 Mg/2 Ml Nebu) 0.5 mg IH Q12HRT [facility] Last Admin: 10/27/20 07:58 Dose: 0.5 mg Documented by: Dexamethasone (Dexamethasone 4 Mg/Ml Vial) 6 mg IV Q24HR [facility] Stop: 11/04/20 10:01 Last Admin: 10/27/20 10:34 Dose: 6 mg Documented by: Docusate Sodium (Docusate Sodium 100 Mg Cap) 100 mg PO BID [facility] Last Admin: 10/27/20 10:34 Dose: 100 mg Documented by: Enoxaparin Sodium (Enoxaparin 40 Mg/0.4 Ml Inj) 40 mg SUB-Q QDAY [facility] Last Admin: 10/27/20 10:34 Dose: 40 mg Documented by: Guaifenesin (Guaifenesin Er 600 Mg Tab) 600 mg PO BID [facility] Last Admin: 10/27/20 10:33 Dose: 600 mg Documented by: Ceftriaxone Sodium (Rocephin/Ns 2 Gm/100 Ml) 2 gm in 100 mls @ 200 mls/hr IV Q24HR@2200 [facility] Ondansetron HCl (Ondansetron 4 Mg/2 Ml Inj) 4 mg IV Q6H PRN PRN Reason: Nausea And Vomiting Last Admin: 10/27/20 01:08 Dose: 4 mg Documented by: Pantoprazole Sodium (Pantoprazole 40 Mg Tab) 40 mg PO DAILY [facility] Last Admin: 10/27/20 10:34 Dose: 40 mg Documented by: Sodium Chloride (Sodium Chloride 0.9% 10 Ml Flush Syringe) 10 ml IV BID GLORIA Last Admin: 10/27/20 10:35 Dose: 10 ml Documented by: Sodium Chloride (Sodium Chloride 0.9% 10 Ml Flush Syringe) 10 ml IV PRN PRN PRN Reason: LINE FLUSH Physical Examination - Physical Exam Narrative exam: Physical exam deferred due to PPE conservation strategy. Please refer to primary team's note. - Constitutional Vitals: Vital Signs Temp Pulse Resp BP Pulse Ox 98.7 F 75 19 112/65 94 10/27/20 05:32 10/27/20 13:59 10/27/20 13:59 10/27/20 05:32 10/27/20 08:00 Temperature -Last 24 Hours Temperature 98.7 F Temperature 98.7 F Temperature 98.1 F Results - Labs CBC & Chem 7: 10/26/20 21:00 10/26/20 21:00 Labs: Abnormal lab results 10/26/20 10/26/20 10/26/20 Range/Units 21:00 21:00 21:00 WBC 14.8 H (4.5-11.0) K/mm3 Eos % (Auto) 6.9 H (0.0-4.3) % Eos # (Auto) 1.0 H (0.0-0.4) K/mm3 Seg Neutrophils # 9.8 H (1.8-7.7) K/mm3 D-Dimer 560.32 H (0-234) ng/mlDDU Glucose 112 H (65-100) mg/dL Lactate Dehydrogenase 256 H (91-180) units/L 10/26/20 Range/Units 21:00 WBC (4.5-11.0) K/mm3 Eos % (Auto) (0.0-4.3) % Eos # (Auto) (0.0-0.4) K/mm3 Seg Neutrophils # (1.8-7.7) K/mm3 D-Dimer (0-234) ng/mlDDU Glucose 107 H (65-100) mg/dL Lactate Dehydrogenase (91-180) units/L Assessment and Plan Cultures: Blood culture pending COVID-19 positive as outpatient A/P: 25-year-old female past medical history morbid obesity, asthma admitted with COVID-19 #Severe COVID-19 pneumonia: Patient presented with a week of symptoms, chest x- ray with diffuse bilateral infiltrates, admission O2 sats 88% on room air. Inflammatory markers elevated. No evidence of PE on CT normal procalcitonin. #Acute hypoxemic respiratory failure: Likely secondary to COVID-19 infection. Currently on room air #Leukocytosis: Likely secondary to steroids #Morbid obesity: Associated with worse COVID-19 outcomes Recs: -Dexamethasone 6 mg IV/PO daily for 10 days -If she requires oxygen supplementation greater than or equal to 2 L would start remdesivir. -Every other day inflammatory markers including ferritin, D-dimer, CRP, LDH -Stopped empiric antibiotics due to normal procalcitonin. -Anticoagulation per hospital protocol -Proning as able. Thank you for the consult, we will continue to follow. MD Manjit [facility] O: [phone] F: [phone]
--- NOTE | 2020-10-27 16:59 | Vascular Lab Report ---
DUPLEX DOPPLER LOWER EXTREMITY VEINS, BILATERAL INDICATION / CLINICAL INFORMATION: Elevated D-dimers/evaluate for DVT. TECHNIQUE: Duplex doppler imaging was performed through the veins of both lower extremities using venous latosha ajit and other maneuvers. COMPARISON: None available. FINDINGS: RIGHT COMMON FEMORAL VEIN: Negative. RIGHT FEMORAL VEIN: Negative. RIGHT POPLITEAL VEIN: Negative. RIGHT CALF VEINS: Negative. LEFT COMMON FEMORAL VEIN: Negative. LEFT FEMORAL VEIN: Negative. LEFT POPLITEAL VEIN: Negative. LEFT CALF VEINS: Negative. ADDITIONAL FINDINGS: None. IMPRESSION: 1. No sonographic evidence for DVT in either lower extremity. Signer Name: Júnior Granados MD Signed: 10/27/2020 4:54 PM Workstation Name: [id number]
[2020-10-27] MEDS ORDERED: cefTRIAXone/NS 2 GM/100 ML 2 GM/100 ML BAG IV SCH (22:00)
[2020-10-27] MEDS ORDERED: AZITHROMYCIN 250 MG TAB PO SCH (22:00)
[2020-10-28 05:58] LABS: Basophils % (Auto) 0.1 % (0.0-1.8); Hemoglobin 12.1 gm/dl (10.1-14.3); Lymphocytes # (Auto) 2.3 K/mm3 (1.2-5.4); Lymphocytes % (Auto) 19.4 % (13.4-35.0); Mean Corpuscular HGB Conc 33 % (30-34); Mean Corpuscular Volume 86 fl (79-97); Monocytes # (Auto) 0.8 K/mm3 (0.0-0.8); Platelet Count 302 K/mm3 (140-440); Red Cell Distribution Width 15.1 % (13.2-15.2)
[2020-10-28 06:19] LABS: Blood Urea Nitrogen 7 mg/dL (7-17); Calcium 9.1 mg/dL (8.4-10.2); Hemolysis Index 8
[2020-10-28 06:22] LABS: BUN/Creatinine Ratio 14
[2020-10-28] MEDS: IPRATROPIUM/ALBUTEROL SULFATE 3 ML AMPUL.NEB IH SCH ×4 (07:47→20:22)
[2020-10-28] MEDS: BUDESONIDE 0.5 MG/2 ML NEBU IH SCH ×2 (07:59→20:22)
--- NOTE | 2020-10-28 08:28 | Progress Note ---
Assessment and Plan Assessment and plan: 25-year-old female with history of asthma/bronchitis who presents to [facility] ED with complaints of cough, wheezing and shortness of breath x2 weeks. --COVID-19 virus infection/positive COVID-19 test[10/27/2020] COVID-19 positive test on 10/21/2020 [outpatient] [place] PCR positive Contact and droplet isolation Follow inflammatory markers ID evaluation, IV dexamethasone per protocol Patient is saturating well on room air, no need for remdesivir at this point Home oxygen evaluation at discharge --Acute hypoxic respiratory failure; Due to acute exacerbation of bronchial asthma As well as COVID-19 pneumonia Oxygen titrate O2 sats to more than 90% Home O2 evaluation --COVID-19 pneumonia; Empiric antibiotics Procalcitonin levels low Follow cultures, follow ID recommendations --Elevated D-dimer CT chest negative for PE Bilateral lower extremity venous Doppler To rule out DVT --Morbid obesity; BMI 39.9 Patient needs Diet modification exercise as tolerated and weight reduction when medically stable --DVT prophylaxis; Lovenox --Full CODE STATUS Closely monitor the patient and adjust management as needed Plan of care reviewed with the patient and her nurse Patient verbalized understanding of her illness and treatment Advance care 35 minutes History Interval history: I have seen and examined the patient at the bedside Patient's chart and medications reviewed Patient is Covid positive in isolation Vital signs reviewed Hospitalist Physical - Constitutional Vitals: Temp Pulse Resp BP Pulse Ox 97.5 F L 58 L 20 103/45 94 10/28/20 05:26 10/28/20 05:26 10/28/20 05:26 10/28/20 05:10/28/20 05:26 General appearance: Present: mild distress, well-nourished, obese - EENT Eyes: Present: PERRL, EOM intact - Neck Neck: Present: supple, normal ROM - Respiratory Respiratory effort: normal Respiratory: bilateral: diminished, rales, negative: rhonchi, wheezing - Cardiovascular Rhythm: regular Heart Sounds: Present: S1 & S2 - Extremities Extremities: no ischemia, No edema - Abdominal General gastrointestinal: soft, non-tender, non-distended, normal bowel sounds - Integumentary Integumentary: Present: clear, warm - Psychiatric Psychiatric: appropriate mood/affect, cooperative - Neurologic Neurologic: CNII-XII intact, moves all extremities Results - Labs CBC & Chem 7: 10/28/20 04:39 10/28/20 04:39 Labs: Laboratory Last Values WBC 11.8 K/mm3 (4.5-11.0) H 10/28/20 04:39 RBC 4.30 M/mm3 (3.65-5.03) 10/28/20 04:39 Hgb 12.1 gm/dl (10.1-14.3) 10/28/20 04:39 Hct 37.0 % (30.3-42.9) 10/28/20 04:39 MCV 86 fl (79-97) 10/28/20 04:39 MCH 28 pg (28-32) 10/28/20 04:39 MCHC 33 % (30-34) 10/28/20 04:39 RDW 15.1 % (13.2-15.2) 10/28/20 04:39 Plt Count 302 K/mm3 (140-440) 10/28/20 04:39 Lymph % (Auto) 19.4 % (13.4-35.0) 10/28/20 04:39 Bowman % (Auto) 7.0 % (0.0-7.3) 10/28/20 04:39 Eos % (Auto) 0.0 % (0.0-4.3) 10/28/20 04:39 Baso % (Auto) 0.1 % (0.0-1.8) 10/28/20 04:39 Lymph # (Auto) 2.3 K/mm3 (1.2-5.4) 10/28/20 04:39 Bowman # (Auto) 0.8 K/mm3 (0.0-0.8) 10/28/20 04:39 Eos # (Auto) 0.0 K/mm3 (0.0-0.4) 10/28/20 04:39 Baso # (Auto) 0.0 K/mm3 (0.0-0.1) 10/28/20 04:39 Seg Neutrophils % 73.5 % (40.0-70.0) H 10/28/20 04:39 Seg Neutrophils # 8.7 K/mm3 (1.8-7.7) H 10/28/20 04:39 D-Dimer 560.32 ng/mlDDU (0-234) H 10/26/20 21:00 Sodium 142 mmol/L (137-145) 10/28/20 04:39 Potassium 4.5 mmol/L (3.6-5.0) D 10/28/20 04:39 Chloride 106.1 mmol/L (98-107) 10/28/20 04:39 Carbon Dioxide 25 mmol/L (22-30) 10/28/20 04:39 Anion Gap 15 mmol/L 10/28/20 04:39 BUN 7 mg/dL (7-17) 10/28/20 04:39 Creatinine 0.5 mg/dL (0.6-1.2) L 10/28/20 04:39 Estimated GFR > 60 ml/min 10/28/20 04:39 BUN/Creatinine Ratio 14 % 10/28/20 04:39 Glucose 128 mg/dL (65-100) H 10/28/20 04:39 Calcium 9.1 mg/dL (8.4-10.2) 10/28/20 04:39 Ferritin 38.7 ng/mL (10.0-200.0) 10/26/20 21:00 Lactate Dehydrogenase 256 units/L (91-180) H 10/26/20 21:00 C-Reactive Protein 1.20 mg/dL (0.00-1.30) 10/26/20 21:00 Procalcitonin < 0.05 ng/mL (<0.15) 10/26/20 21:00 HCG, Qual Negative (Negative) 10/26/20 21:00 Coronavirus (PCR) Positive (Negative) A 10/27/20 Unknown Microbiology: Microbiology 10/27/20 00:19 Peripheral/Venous Blood Culture - Preliminary NO GROWTH AFTER 24 HOURS 10/27/20 00:46 Peripheral/Venous Blood Culture - Preliminary NO GROWTH AFTER 24 HOURS Maharaj/IV: Voiding Method Toilet IV Catheter Type [Right INT / Saline Lock Antecubital] IV Catheter Type [Right Medial Peripheral IV Port Antecubital] Active Medications - Current Medications Current Medications: Generic Name Dose Route Start Last Admin Trade Name Freq PRN Reason Stop Dose Admin Acetaminophen 650 mg 10/27/20 00:07 10/27/20 10:33 Acetaminophen 325 Mg Tab PO 650 mg Q4H PRN Administration Pain MILD(1-3)/Fever >100.5/RANGEL Albuterol 2.5 mg 10/27/20 00:07 Albuterol 2.5 Mg/3 Ml Nebu IH Q3HRT PRN Shortness Of Breath Albuterol/Ipratropium 1 ampul 10/27/20 02:00 10/28/20 07:59 Ipratropium/Albuterol Sulfate 3 Ml Ampul.Neb IH 1 ampul Q6HRT GLORIA Administration Azithromycin 500 mg 10/27/20 22:00 10/27/20 21:41 Azithromycin 250 Mg Tab PO 10/30/20 22:01 500 mg QHS GLORIA Administration Budesonide 0.5 mg 10/27/20 08:00 10/28/20 07:59 Budesonide 0.5 Mg/2 Ml Nebu IH 0.5 mg Q12HRT GLORIA Administration Dexamethasone 6 mg 10/27/20 10:00 10/27/20 10:34 Dexamethasone 4 Mg/Ml Vial IV 11/04/20 10:01 6 mg Q24HR GLORIA Administration Docusate Sodium 100 mg 10/27/20 10:00 10/27/20 21:41 Docusate Sodium 100 Mg Cap PO 100 mg BID GLORIA Administration Enoxaparin Sodium 40 mg 10/27/20 10:00 10/27/20 10:34 Enoxaparin 40 Mg/0.4 Ml Inj SUB-Q 40 mg QDAY GLORIA Administration Guaifenesin 600 mg 10/27/20 10:00 10/27/20 21:41 Guaifenesin Er 600 Mg Tab PO 600 mg BID GLORIA Administration Ceftriaxone Sodium 2 gm in 100 mls @ 200 mls/hr 10/27/20 22:00 10/27/20 21:42 Rocephin/Ns 2 Gm/100 Ml IV 200 mls/hr Q24HR@2200 GLORIA Administration Ondansetron HCl 4 mg 10/27/20 00:07 10/27/20 01:08 Ondansetron 4 Mg/2 Ml Inj IV 4 mg Q6H PRN Administration Nausea And Vomiting Pantoprazole Sodium 40 mg 10/27/20 10:00 10/27/20 10:34 Pantoprazole 40 Mg Tab PO 40 mg DAILY GLORIA Administration Sodium Chloride 10 ml 10/27/20 10:00 10/27/20 21:42 Sodium Chloride 0.9% 10 Ml Flush Syringe IV 10 ml BID GLORIA Administration Sodium Chloride 10 ml 01/14/21 00:07 Sodium Chloride 0.9% 10 Ml Flush Syringe IV PRN PRN LINE FLUSH
[2020-10-28] MEDS: ENOXAPARIN 40 MG/0.4 ML INJ SUB-Q SCH (09:50)
[2020-10-28] MEDS: dexAMETHasone 4 MG/ML VIAL IV SCH (09:50)
[2020-10-28] MEDS: guaiFENesin ER 600 MG TAB PO SCH ×2 (09:51→21:56)
[2020-10-28] MEDS: DOCUSATE SODIUM 100 MG CAP PO SCH ×2 (09:52→21:56)
[2020-10-28] MEDS: PANTOPRAZOLE 40 MG TAB PO SCH (09:52)
[2020-10-28] MEDS ORDERED: FUROSEMIDE 40 MG/4 ML INJ IV NR (10:01)
--- NOTE | 2020-10-28 10:21 | Progress Note ---
Assessment and Plan Cultures: Blood culture pending COVID-19 positive as outpatient and now inpatient. A/P: 25-year-old female past medical history morbid obesity, asthma admitted with COVID-19 #Severe COVID-19 pneumonia: Patient presented with a week of symptoms, chest x- ray with diffuse bilateral infiltrates, admission O2 sats 88% on room air. Inflammatory markers elevated. No evidence of PE on CT, normal procalcitonin. No DVT on Doppler #Acute hypoxemic respiratory failure: Likely secondary to COVID-19 infection. Currently on room air #Leukocytosis: Likely secondary to steroids #Morbid obesity: Associated with worse COVID-19 outcomes Recs: -Dexamethasone 6 mg IV/PO daily for 10 days -If she requires oxygen supplementation greater than or equal to 2 L would start remdesivir. -Every other day inflammatory markers including ferritin, D-dimer, CRP, LDH -Anticoagulation per hospital protocol -Proning as able. She remained stable on room air, infectious disease will sign off. Please call with any new questions. Rodger Barth MD [facility] O: [phone] F: [phone] Subjective Date of service: 10/28/20 Interval history: Afebrile, normal white count. Covid positive. Currently on room air. Imaging personally reviewed: Lower extremity Dopplers: No evidence of DVT. Objective - Exam Narrative Exam: Physical exam deferred due to PPE conservation strategy. Please refer to primary team's note. - Constitutional Vitals: Vital Signs Temp Pulse Resp BP Pulse Ox 97.5 F L 91 H 20 103/45 94 10/28/20 05:26 10/28/20 07:59 10/28/20 07:59 10/28/20 05:26 10/28/20 07:59 Temperature -Last 24 Hours Temperature 97.5 F Temperature 97.4 F Temperature 98.3 F - Labs CBC & Chem 7: 10/28/20 04:39 10/28/20 04:39 Labs: Abnormal lab results 10/27/20 10/28/20 10/28/20 Range/Units Unknown 04:39 04:39 WBC 11.8 H (4.5-11.0) K/mm3 Seg Neutrophils % 73.5 H (40.0-70.0) % Seg Neutrophils # 8.7 H (1.8-7.7) K/mm3 Creatinine 0.5 L (0.6-1.2) mg/dL Glucose 128 H (65-100) mg/dL Coronavirus (PCR) Positive A (Negative)
[2020-10-28] MEDS: CETIRIZINE 10 MG TAB PO SCH (11:08)
[2020-10-29] MEDS: IPRATROPIUM/ALBUTEROL SULFATE 3 ML AMPUL.NEB IH SCH ×4 (02:56→20:40)
[2020-10-29] MEDS: BUDESONIDE 0.5 MG/2 ML NEBU IH SCH ×2 (07:34→20:40)
[2020-10-29 08:16] LABS: C-Reactive Protein 0.4 mg/dL (0.00-1.30)
[2020-10-29] MEDS: guaiFENesin ER 600 MG TAB PO SCH ×2 (09:18→22:50)
[2020-10-29] MEDS: dexAMETHasone 4 MG/ML VIAL IV SCH (09:18)
[2020-10-29] MEDS: DOCUSATE SODIUM 100 MG CAP PO SCH ×2 (09:18→22:51)
[2020-10-29] MEDS: ENOXAPARIN 40 MG/0.4 ML INJ SUB-Q SCH (09:18)
[2020-10-29] MEDS: PANTOPRAZOLE 40 MG TAB PO SCH (09:18)
[2020-10-29] MEDS: CETIRIZINE 10 MG TAB PO SCH (09:18)
--- NOTE | 2020-10-29 13:52 | Progress Note ---
Assessment and Plan Assessment and plan: 25-year-old female with history of asthma/bronchitis who presents to [facility] ED with complaints of cough, wheezing and shortness of breath x2 weeks. --COVID-19 virus infection/positive COVID-19 test[10/27/2020] COVID-19 positive test on 10/21/2020 [outpatient] [place] PCR positive, Contact and droplet isolation Follow inflammatory markers, normal/very low ID evaluation, IV dexamethasone per protocol Patient is saturating well on room air, no need for remdesivir at this point Home oxygen evaluation at discharge --Acute hypoxic respiratory failure; Due to acute exacerbation of bronchial asthma As well as COVID-19 pneumonia Oxygen titrate O2 sats to more than 90% Home O2 evaluation --COVID-19 pneumonia; Empiric antibiotics Procalcitonin levels low Follow cultures, follow ID recommendations --Elevated D-dimer CT chest negative for PE Bilateral lower extremity venous Doppler To rule out DVT --Morbid obesity; BMI 39.9 Patient needs Diet modification exercise as tolerated and weight reduction when medically stable --DVT prophylaxis; Lovenox --Full CODE STATUS Closely monitor the patient and adjust management as needed Plan of care reviewed with the patient and her nurse Patient verbalized understanding of her illness and treatment Ambulate as tolerated Evaluation for home oxygen Possible discharge home tomorrow if stable History Interval history: I have seen and examined the patient at the bedside this morning Isolation precautions Covid protocol strictly followed Patient feels slightly better Still has some shortness of breath And wheezing significantly improved Patient is receiving breathing treatments Hospitalist Physical - Constitutional Vitals: Temp Pulse Resp BP Pulse Ox 98.5 F 72 18 88/44 92 10/29/20 11:57 10/29/20 11:57 10/29/20 11:57 10/29/20 11:57 10/29/20 11:57 General appearance: Present: mild distress, well-nourished, obese - EENT Eyes: Present: PERRL, EOM intact - Neck Neck: Present: supple, normal ROM - Respiratory Respiratory effort: normal Respiratory: bilateral: diminished, rhonchi, negative: rales, wheezing - Cardiovascular Rhythm: regular Heart Sounds: Present: S1 & S2 - Extremities Extremities: no ischemia, No edema - Abdominal General gastrointestinal: soft, non-tender, non-distended, normal bowel sounds - Integumentary Integumentary: Present: clear, warm - Psychiatric Psychiatric: appropriate mood/affect, cooperative - Neurologic Neurologic: CNII-XII intact, moves all extremities Results - Labs CBC & Chem 7: 10/28/20 04:39 10/28/20 04:39 Labs: Laboratory Last Values WBC 11.8 K/mm3 (4.5-11.0) H 10/28/20 04:39 RBC 4.30 M/mm3 (3.65-5.03) 10/28/20 04:39 Hgb 12.1 gm/dl (10.1-14.3) 10/28/20 04:39 Hct 37.0 % (30.3-42.9) 10/28/20 04:39 MCV 86 fl (79-97) 10/28/20 04:39 MCH 28 pg (28-32) 10/28/20 04:39 MCHC 33 % (30-34) 10/28/20 04:39 RDW 15.1 % (13.2-15.2) 10/28/20 04:39 Plt Count 302 K/mm3 (140-440) 10/28/20 04:39 Lymph % (Auto) 19.4 % (13.4-35.0) 10/28/20 04:39 Sanders % (Auto) 7.0 % (0.0-7.3) 10/28/20 04:39 Eos % (Auto) 0.0 % (0.0-4.3) 10/28/20 04:39 Baso % (Auto) 0.1 % (0.0-1.8) 10/28/20 04:39 Lymph # (Auto) 2.3 K/mm3 (1.2-5.4) 10/28/20 04:39 Sanders # (Auto) 0.8 K/mm3 (0.0-0.8) 10/28/20 04:39 Eos # (Auto) 0.0 K/mm3 (0.0-0.4) 10/28/20 04:39 Baso # (Auto) 0.0 K/mm3 (0.0-0.1) 10/28/20 04:39 Seg Neutrophils % 73.5 % (40.0-70.0) H 10/28/20 04:39 Seg Neutrophils # 8.7 K/mm3 (1.8-7.7) H 10/28/20 04:39 D-Dimer 385.16 ng/mlDDU (0-234) H 10/29/20 04:30 Sodium 142 mmol/L (137-145) 10/28/20 04:39 Potassium 4.5 mmol/L (3.6-5.0) D 10/28/20 04:39 Chloride 106.1 mmol/L (98-107) 10/28/20 04:39 Carbon Dioxide 25 mmol/L (22-30) 10/28/20 04:39 Anion Gap 15 mmol/L 10/28/20 04:39 BUN 7 mg/dL (7-17) 10/28/20 04:39 Creatinine 0.5 mg/dL (0.6-1.2) L 10/28/20 04:39 Estimated GFR > 60 ml/min 10/28/20 04:39 BUN/Creatinine Ratio 14 % 10/28/20 04:39 Glucose 128 mg/dL (65-100) H 10/28/20 04:39 Calcium 9.1 mg/dL (8.4-10.2) 10/28/20 04:39 Ferritin 23.4 ng/mL (10.0-200.0) 10/29/20 04:30 Lactate Dehydrogenase 181 units/L (91-180) H 10/29/20 04:30 C-Reactive Protein 0.40 mg/dL (0.00-1.30) 10/29/20 04:30 Procalcitonin < 0.05 ng/mL (<0.15) 10/26/20 21:00 HCG, Qual Negative (Negative) 10/26/20 21:00 Coronavirus (PCR) Positive (Negative) A 10/27/20 Unknown Microbiology: Microbiology 10/27/20 00:19 Peripheral/Venous Blood Culture - Preliminary NO GROWTH AFTER 48 HOURS 10/27/20 00:46 Peripheral/Venous Blood Culture - Preliminary NO GROWTH AFTER 48 HOURS Maharaj/IV: Voiding Method Toilet IV Catheter Type [Right INT / Saline Lock Antecubital] IV Catheter Type [Right Medial Peripheral IV Port Antecubital] Active Medications - Current Medications Current Medications: Generic Name Dose Route Start Last Admin Trade Name Freq PRN Reason Stop Dose Admin Acetaminophen 650 mg 10/27/20 00:07 10/27/20 10:33 Acetaminophen 325 Mg Tab PO 650 mg Q4H PRN Administration Pain MILD(1-3)/Fever >100.5/RANGEL Albuterol 2.5 mg 10/27/20 00:07 Albuterol 2.5 Mg/3 Ml Nebu IH Q3HRT PRN Shortness Of Breath Albuterol/Ipratropium 1 ampul 10/27/20 02:00 10/29/20 07:34 Ipratropium/Albuterol Sulfate 3 Ml Ampul.Neb IH 1 ampul Q6HRT GLORIA Administration Budesonide 0.5 mg 10/27/20 08:00 10/29/20 07:34 Budesonide 0.5 Mg/2 Ml Nebu IH 0.5 mg Q12HRT GLORIA Administration Cetirizine HCl 10 mg 10/28/20 11:00 10/29/20 09:18 Cetirizine 10 Mg Tab PO 10 mg QDAY GLORIA Administration Dexamethasone 6 mg 10/27/20 10:00 10/29/20 09:18 Dexamethasone 4 Mg/Ml Vial IV 11/04/20 10:01 6 mg Q24HR GLORIA Administration Docusate Sodium 100 mg 10/27/20 10:00 10/29/20 09:18 Docusate Sodium 100 Mg Cap PO 100 mg BID GLORIA Administration Enoxaparin Sodium 40 mg 10/27/20 10:00 10/29/20 09:18 Enoxaparin 40 Mg/0.4 Ml Inj SUB-Q 40 mg QDAY GLORIA Administration Guaifenesin 600 mg 10/27/20 10:00 10/29/20 09:18 Guaifenesin Er 600 Mg Tab PO 600 mg BID GLORIA Administration Ondansetron HCl 4 mg 10/27/20 00:07 10/27/20 01:08 Ondansetron 4 Mg/2 Ml Inj IV 4 mg Q6H PRN Administration Nausea And Vomiting Pantoprazole Sodium 40 mg 10/27/20 10:00 10/29/20 09:18 Pantoprazole 40 Mg Tab PO 40 mg DAILY GLORIA Administration Sodium Chloride 10 ml 10/27/20 10:00 10/29/20 09:19 Sodium Chloride 0.9% 10 Ml Flush Syringe IV 10 ml BID GLORIA Administration Sodium Chloride 10 ml 10/27/20 00:07 Sodium Chloride 0.9% 10 Ml Flush Syringe IV PRN PRN LINE FLUSH
[2020-10-30] MEDS: IPRATROPIUM/ALBUTEROL SULFATE 3 ML AMPUL.NEB IH SCH ×3 (02:54→14:04)
[2020-10-30] MEDS: BUDESONIDE 0.5 MG/2 ML NEBU IH SCH (07:53)
[2020-10-30] MEDS: PANTOPRAZOLE 40 MG TAB PO SCH (10:03)
[2020-10-30] MEDS: guaiFENesin ER 600 MG TAB PO SCH (10:03)
[2020-10-30] MEDS: ENOXAPARIN 40 MG/0.4 ML INJ SUB-Q SCH (10:04)
[2020-10-30] MEDS: CETIRIZINE 10 MG TAB PO SCH (10:04)
[2020-10-30] MEDS: DOCUSATE SODIUM 100 MG CAP PO SCH (10:04)
[2020-10-30] MEDS: dexAMETHasone 4 MG/ML VIAL IV SCH (10:04)
--- NOTE | 2020-10-30 11:03 | Discharge Summary ---
Providers - Providers Date of Admission: 10/27/20 00:07 Date of discharge: 10/30/20 Attending physician: TRACEY SY 10/26/20 20:35 Consult to Physician [CONS] Urgent Comment: Consulting Provider: ULISES COLE Physician Instructions: Reason For Exam: covid +, asthma, hypoxia Primary care physician: BOAT PERSON Hospitalization Condition: Stable Hospital course: Assessment and plan: 25-year-old female with history of asthma/bronchitis who presents to [facility] ED with complaints of cough, wheezing and shortness of breath x2 weeks. --COVID-19 virus infection/positive COVID-19 test[10/27/2020] COVID-19 positive test on 10/21/2020 [outpatient] [place] PCR positive, Contact and droplet isolation 7 more days Patient is saturating well on room air, no need for remdesivir per review of ID note --Acute hypoxic respiratory failure; Due to acute exacerbation of bronchial asthma As well as COVID-19 pneumonia 6-minute walk Oxygen saturation at room air at rest was 98% With 6-minute walk it was 97% Patient is medically stable for discharge --Elevated D-dimer CT chest negative for PE Bilateral lower extremity venous Doppler-negative for DVT CTA chest negative for PE No need for DVT prophylaxis at discharge as D-dimer is minimally elevated --Morbid obesity; BMI 39.9 Patient needs Diet modification exercise as tolerated and weight reduction when medically stable History Interval history: I have seen and examined the patient at the bedside this morning She is alert and oriented x3 Not in any distress Denies any shortness of breath She is medically stable for discharge Disposition: [facility] TO HOME OR SELFCARE Time spent for discharge: 36 minutes Core Measure Documentation - Palliative Care Palliative Care/ Comfort Measures: Not Applicable - Core Measures Any of the following diagnoses?: none Exam - Constitutional Vitals: Temp Pulse Resp BP Pulse Ox 97.4 F L 75 18 102/54 97 10/30/20 04:02 10/30/20 10:00 10/30/20 10:00 10/30/20 04:02 10/30/20 10:00 General appearance: Present: no acute distress, well-nourished, obese - EENT Eyes: Present: PERRL, EOM intact ENT: hearing intact, clear oral mucosa - Neck Neck: Present: supple, normal ROM - Respiratory Respiratory effort: normal Respiratory: bilateral: CTA, negative: rales, rhonchi, wheezing - Cardiovascular Rhythm: regular Heart Sounds: Present: S1 & S2 - Extremities Extremities: No edema - Abdominal General gastrointestinal: Present: soft, non-tender - Rectal Rectal Exam: deferred - Integumentary Integumentary: Present: clear - Musculoskeletal Musculoskeletal: strength equal bilaterally - Psychiatric Psychiatric: appropriate mood/affect - Neurologic Neurologic: no focal deficits Plan Activity: advance as tolerated Weight Bearing Status: Full Weight Bearing Diet: regular, low fat Follow up with: PRIMARY CARE,MD [Primary Care Provider] - 3-5 Days Prescriptions: predniSONE [Deltasone] 20 mg PO QDAY #7 tab Albuterol Mdi (or & Nicu Only) [ProAir HFA Inhaler] 2 puff IH QID PRN #1 inhalation PRN Reason: Shortness Of Breath ALBUTEROL NEB's [Proventil 0.083% NEBS] 2.5 mg IH Q8HR PRN #100 nebu PRN Reason: Shortness Of Breath Beclomethasone Dipropionate [Qvar] 8.7 gm IH BID #1 aer.w.adap
[2020-10-30 12:43] VITALS: BP 116/74
== END 2020-10-30 15:05 | disposition home or self-care (01) | DRG 177 ==
LOC: ED 18:26 → 3A 10-27 00:07
PROVIDERS: ADMIT Internal Medicine Geriatric Medicine; ATTEND Internal Medicine
DX: U07.1 COVID-19 (principal); J96.01 Acute respiratory failure with hypoxia; J12.82 Pneumonia due to coronavirus disease 2019; J45.901 Unspecified asthma with (acute) exacerbation; Z68.41 Body mass index [BMI] 40.0-44.9, adult; D72.829 Elevated white blood cell count, unspecified; E66.01 Morbid (severe) obesity due to excess calories; T38.0X5A Adverse effect of glucocorticoids and synthetic analogues, initial encounter; Y92.89 Other specified places as the place of occurrence of the external cause; Z79.899 Other long term (current) drug therapy; Z79.891 Long term (current) use of opiate analgesic; Z79.01 Long term (current) use of anticoagulants; Z90.49 Acquired absence of other specified parts of digestive tract; Z68.39 Body mass index [BMI] 39.0-39.9, adult
CPT/HCPCS: 36415; 71046; 71275; 80048; 82728; 82947; 83615; 84145; 84703; 85025; 85379; 86140; 87040; 93970; 94640; 94644; 94760; 96365; 96366; 96375; G0378; J0456; J0696; J1100; J1650; J1940; J2405; J3475; Q9967; U0003

== ENCOUNTER 2020-11-01 19:47 | Emergency (ER) | payer SELFPAY ==
--- NOTE | 2020-11-01 20:36 | Event Note ---
ED Screening Note Date of service: 11/01/20 Time: 20:31 ED Screening Note: pt presents for cough malaise, dx with COVID 19 on 10/27/2020, DC'd to home on 10/30/20 with po abx and nebs states symptoms worsen This initial assessment/diagnostic orders/clinical plan/treatment(s) is/are subject to change based on patients health status, clinical progression and re- assessment by fellow clinical providers in the ED. Further treatment and workup at subsequent clinical providers discretion. Patient/guardian urged not to elope from the ED as their condition may be serious if not clinically assessed and managed. Initial orders include: cxr
--- NOTE | 2020-11-01 22:00 | XRay Report ---
CHEST 2 VIEWS INDICATION / CLINICAL INFORMATION: cough fever. COMPARISON: 10/26/2020 FINDINGS: SUPPORT DEVICES: None. HEART / MEDIASTINUM: Stable. LUNGS / PLEURA: No significant pulmonary or pleural abnormality. No pneumothorax. ADDITIONAL FINDINGS: No significant additional findings. IMPRESSION: 1. No acute findings. No significant interval change since 10/26/2020. Signer Name: Flash Miller MD Signed: 11/01/2020 9:55 PM Workstation Name: [id number]
[2020-11-02 01:07] VITALS: BP 115/65
--- NOTE | 2020-11-02 01:29 | Emergency Department Report ---
ED General Adult HPI - General Chief complaint: Chest Pain Stated complaint: CHEST PAIN/SUSIE/COVID+ Time Seen by Provider: 11/02/20 01:15 Source: patient Mode of arrival: Ambulatory Limitations: No Limitations - History of Present Illness Initial comments: Chief complaint: "I was unable to afford my prescriptions. I do not have any insurance. I wanted to come back before I became worse." HPI: This is a 25-year-old female with history of asthma PCO S and COVID-19 infection presents with body aches since discharge from this hospital 2 days ago. Patient was evaluated and treated for COVID-19 infection as well as asthma. Work-up included negative bilateral Doppler ultrasound of lower extremities as well as negative CT angiogram of the chest. Patient stated that Qvar inhaler because over the $300. Prednisone cost $4. Patient mostly has cough malaise. She denies chest pain. She denies significant shortness of breath. She denies fever. -: Gradual (Symptoms began 2 weeks ago.) Severity scale (0 -10): 0 Consistency: constant Improves with: none Worsens with: none Associated Symptoms: malaise, other (Body aches) Treatments Prior to Arrival: other (Hospital admission discharge 2 days ago) - Related Data Previous Rx's Medication Instructions Recorded Last Taken Type ALBUTEROL NEB's [Proventil 0.083% 2.5 mg IH Q4H PRN #120 nebu 01/06/18 Unknown Rx NEBS] ALBUTEROL NEB's [Proventil 0.083% 2.5 mg IH Q8HR PRN #100 nebu 10/30/20 Unknown Rx NEBS] Albuterol Mdi (or & Nicu Only) 2 puff IH QID PRN #1 inhalation 10/30/20 Unknown Rx [ProAir HFA Inhaler] Beclomethasone Dipropionate [Qvar] 8.7 gm IH BID #1 aer.w.adap 10/30/20 Unknown Rx predniSONE [Deltasone] 20 mg PO QDAY #7 tab 10/30/20 Unknown Rx Allergies Allergy/AdvReac Type Severity Reaction Status Date / Time No Known Allergies Allergy Verified 11/01/20 19:54 ED Review of Systems ROS: Stated complaint: CHEST PAIN/SUSIE/COVID+ Other details as noted in HPI Comment: All other systems reviewed and negative Constitutional: malaise. denies: chills, fever Respiratory: cough. denies: shortness of breath, wheezing Cardiovascular: denies: chest pain Gastrointestinal: denies: abdominal pain, nausea, vomiting ED Past Medical Hx - Past Medical History Previous Medical History?: Yes Hx Hypertension: No Hx Congestive Heart Failure: No Hx Diabetes: No Hx Deep Vein Thrombosis: No Hx Pulmonary Embolism: No Hx Renal Disease: No Hx Sickle Cell Disease: No Hx Kidney Stones: No Hx Asthma: Yes Hx COPD: No Hx Tuberculosis: No Hx HIV: No Additional medical history: Bronchitis, PCOS. COVID - Surgical History Past Surgical History?: Yes Hx Coronary Stent: No Hx Pacemaker: No Hx Internal Defibrillator: No Hx Appendectomy: Yes - Social History Smoking Status: Never Smoker Substance Use Type: None - Medications Home Medications: Home Medications Medication Instructions Recorded Confirmed Last Taken Type ALBUTEROL NEB's [Proventil 0.083% 2.5 mg IH Q4H PRN #120 nebu 01/06/18 Unknown Rx NEBS] ALBUTEROL NEB's [Proventil 0.083% 2.5 mg IH Q8HR PRN #100 nebu 10/30/20 Unknown Rx NEBS] Albuterol Mdi (or & Nicu Only) 2 puff IH QID PRN #1 inhalation 10/30/20 Unknown Rx [ProAir HFA Inhaler] Beclomethasone Dipropionate [Qvar] 8.7 gm IH BID #1 aer.w.adap 10/30/20 Unknown Rx predniSONE [Deltasone] 20 mg PO QDAY #7 tab 10/30/20 Unknown Rx ED Physical Exam - General Limitations: No Limitations General appearance: alert, in no apparent distress, other (Pleasant talkative no acute distress no work of breathing) - Head Head exam: Present: atraumatic, normocephalic - Eye Eye exam: Present: normal appearance - ENT ENT exam: Present: mucous membranes moist - Neck Neck exam: Present: normal inspection, full ROM. Absent: tenderness, meningismus - Respiratory Respiratory exam: Present: normal lung sounds bilaterally. Absent: respiratory distress, wheezes, rales, rhonchi, stridor, accessory muscle use, decreased breath sounds, prolonged expiratory - Cardiovascular Cardiovascular Exam: Present: regular rate, normal rhythm, normal heart sounds. Absent: systolic murmur, diastolic murmur, rubs, gallop - GI/Abdominal GI/Abdominal exam: Present: soft, normal bowel sounds. Absent: distended, tenderness, guarding, rebound - Extremities Exam Extremities exam: Present: normal inspection - Neurological Exam Neurological exam: Present: alert, oriented X3 - Psychiatric Psychiatric exam: Present: normal affect, normal mood - Skin Skin exam: Present: warm, dry, intact, normal color. Absent: rash ED Course Vital Signs 11/01/20 11/02/20 19:50 01:07 Temperature 98.0 F Pulse Rate 105 H 89 Respiratory 18 19 Rate Blood Pressure 122/73 Blood Pressure 115/65 [Left] O2 Sat by Pulse 96 97 Oximetry ED Medical Decision Making - Radiology Data Radiology results: report reviewed, image reviewed Chest radiograph no acute findings according radiology report - Medical Decision Making 1. COVID-19 infection: Patient appears to be recovering well without significant complication. Chest radiograph negative for infiltrates. Pulse ox 97% on room air. Current heart rate 86 bpm. 2. History of asthma: No evidence of acute observation. I encouraged patient to fill albuterol and prednisone prescriptions. She is able to afford his medications. I asked her to discuss alternatives to Qvar with her pharmacist. Patient is discharged home. I have provided referral to outpatient medicine physician. Vital Signs - 24 hr 11/01/20 11/02/20 19:50 01:07 Temperature 98.0 F Pulse Rate 105 H 89 Respiratory 18 19 Rate Blood Pressure 122/73 Blood Pressure 115/65 [Left] O2 Sat by Pulse 96 97 Oximetry Critical care attestation.: If time is entered above; I have spent that time in minutes in the direct care of this critically ill patient, excluding procedure time. ED Disposition Clinical Impression: COVID-19, Asthma Disposition: DC-01 TO HOME OR SELFCARE Is pt being admited?: No Does the pt Need Aspirin: No Condition: Stable Instructions: Asthma (ED), Asthma, Adult, [id number] Referrals: JABIER DAVILA MD [Staff Physician] - 3-5 Days
== END 2020-11-02 01:40 | disposition home or self-care (01) ==
LOC: ED 19:47
DX: U07.1 COVID-19 (principal); J45.909 Unspecified asthma, uncomplicated; Z79.899 Other long term (current) drug therapy
CPT/HCPCS: 71046; 99283